=== PATIENT | female | born 1985 | race Caucasian/White ===

== ENCOUNTER 2017-01-23 03:36 | Inpatient (IN) | payer MEDICAID, OTHER ==
[~2017-01-23] VITALS: Ht 157.5 cm; Wt 88.5 kg
[2017-01-23 03:46] VITALS: Ht 157.5 cm; Wt 88.5 kg
[2017-01-23] MEDS ORDERED: PREN1TAB79 PO (03:47)
[2017-01-23 04:22] LABS: ADD SCAN DIFF NO
[2017-01-23 04:30] LABS: ADD UMIC NO; UR BILIRUBIN (Dip) NEGATIVE (NEGATIVE); UR BLOOD (Dip) NEGATIVE (NEGATIVE); UR CLARITY CLEAR (CLEAR); UR COLOR LT. YELLOW (YELLOW); UR GLUCOSE (Dip) NEGATIVE (NEGATIVE); UR KETONES (Dip) NEGATIVE (NEGATIVE); UR LEUKOCYTE ESTERASE (Dip) NEGATIVE (NEGATIVE); UR NITRITE (Dip) NEGATIVE (NEGATIVE); UR TOTAL PROTEIN (Dip) NEGATIVE (NEGATIVE); UR UROBILINOGEN (Dip) 0.2 E.U./dL (0.1-1.0)
[2017-01-23 04:36] LABS: BASOPHIL # 0.1 10^3/ul (0.0-0.1); BASOPHILS % 0.3 % (0.0-2.0); EOSINOPHILS # 0.2 10^3/ul (0.0-0.5); EOSINOPHILS % 1.2 % (0.0-7.0); HEMATOCRIT 38.3 % (37.0-47.0); HEMOGLOBIN 13.3 g/dl (12.0-16.0); LYMPHOCYTES # 2.1 10^3/ul (0.8-2.9); LYMPHOCYTES % 13.8 % (15.0-51.0); MEAN CORPUSCULAR HEMOGLOBIN 30.4 pg (29.0-33.0); MEAN CORPUSCULAR HGB CONC 34.7 g/dl (32.0-37.0); MEAN CORPUSCULAR VOLUME 87.4 fl (82.0-101.0); MEAN PLATELET VOLUME 11.6 fl (7.4-10.4); MONOCYTES % 6.7 % (0.0-11.0); NEUTROPHIL # 11.9 10^3/ul (1.6-7.5); NEUTROPHILS % 77.6 % (39.0-77.0); PLATELET COUNT 188 10^3/UL (140-415); RED BLOOD COUNT 4.38 10^6/ul (4.20-5.40); RED CELL DISTRIBUTION WIDTH 14.3 % (11.5-14.5); WHITE BLOOD COUNT 15.4 10^3/ul (4.8-10.8)
[2017-01-23 04:47] LABS: ALBUMIN 3.6 g/dl (3.3-4.9); ALBUMIN/GLOBULIN RATIO 1.12; BILIRUBIN,INDIRECT 0.3 mg/dl (0-1.1); BILIRUBIN,TOTAL 0.3 mg/dl (0.2-1.3); CALCIUM 9.2 mg/dl (8.4-10.2); CREATININE 0.5 mg/dl (0.44-1.00); POTASSIUM 3.8 mmol/L (3.5-5.1); TOTAL PROTEIN 6.8 g/dl (6.1-8.1)
--- NOTE | 2017-01-23 05:25 | RADRPT ---
PROCEDURE: OB ultrasound for biophysical profile CLINICAL INDICATION: labor TECHNIQUE: Multiple sonographic images of the pelvis were obtained. Transabdominal views of the g ravid uterus are available for review. The images were reviewed on a PACS workstation. COMPARISON: None FINDINGS: breathing movement = 2/2 tone = 2/2 motion = 2/2 BERTO = 2/2 BERTO = 11.3 cm Single live intrauterine with cardiac activity of 134 bpm. position is cephal ic. The placenta is fundal. The cervix is closed with a length of 4.3 cm. IMPRESSION: 1. Single live intrauterine gestation. 2. Biophysical profile = 8/8. 3. BERTO = 11.3 cm. 4. The cervix is closed with a length of 4.3 cm. RPTAT: HH .Katharine Darling MD, Date Time Electronically viewed and signed by .Katharine Darling MD, on 01/23/2017 05:24 .G/
--- NOTE | 2017-01-23 05:27 | RADRPT ---
PROCEDURE: US OB. CLINICAL INDICATION: Size and dates TECHNIQUE: Multiple sonographic images of the pelvis were obtained. Transabdominal imaging only w as performed. The images were reviewed on a PACS workstation. COMPARISON: No prior studies are available for comparison. FINDINGS: There is a single live intrauterine gestation. Cardiac activity is present with 137 beats per minut e. position is cephalic. Measurements were made in order to determine age. The results are as follows: BPD = 8.08 cm HC = 28.53 cm AC = 25.79 cm FL = 5.67 cm. Estimated gestational age of approximately 30 weeks 6 days. The estimated date of delivery is 03/28/2017. The EFW = 1532 g, 3.7 %ile. The placenta is fundal. There is no evidence for an abruption or placenta previa. IMPRESSION: 1. Single live intrauterine gestation of approximately 30 weeks 6 days, by ultrasound criteria. 2. The estimated date of delivery is 03/28/2017. 3. The estimated weight is 1532 g, 3.7 %ile. RPTAT: HH .Katharine Darling MD, Date Time Electronically viewed and signed by .Katharine Darling MD, on 01/23/2017 05:26 .G/
--- NOTE | 2017-01-23 05:29 | RADRPT ---
PROCEDURE: US Abdomen (right upper quadrant). CLINICAL INDICATION: Abdominal pain. TECHNIQUE: Multiple real-time longitudinal and transverse images of the right upper quadrant of th e abdomen were acquired utilizing a curved array transducer. Images were reviewed on a high-resoluti on PACS workstation. COMPARISON: None FINDINGS: The liver is normal in size and demonstrates normal echogenicity. No focal intrahepatic mass is id entified. The gallbladder contains sludge. There is no pericholecystic fluid or gallbladder wall t hickening. No intra or extrahepatic biliary dilatation is seen. The common bile duct measures 4.5 m m in maximal dimension. The portal and hepatic veins are patent demonstrating normal directional korey w. The visualized portions of the pancreas are unremarkable with obscuration of the tail of the panc reas. No free fluid is identified. The right kidney measures 9.9 cm in length. There is normal echogenicity within the right kidney. There is no perinephric fluid collection. No hydronephrosis, mass, or calculus is seen. IMPRESSION: Small amount of sludge within the gallbladder. Otherwise, unremarkable right upper quadrant ultraso und. RPTAT: HH .Katharine Darling MD, Date Time Electronically viewed and signed by .Katharine Darling MD, on 01/23/2017 05:28 .G/
[2017-01-23] MEDS ORDERED: ACETAMINOPHEN 325 MG TAB PO ONE (06:00)
--- NOTE | 2017-01-23 06:56 | HP ---
Date/Time of Note Date/Time of Note DATE: 01/23/17 TIME: 06:54 OB - History Hx of Present : 1 Para: 0 Care: Good Care Obstetrical Complications: None Medical Complications: None Past Family/Social History * Past Medical, Surgical, Family and Obstetric Histories reviewed from chart. OB Admission Exam Physical Exam Abdomen: WNL Extremities: Normal Cervical Dilatation: None Effacement: 0% Heart Rate: 140's Accelerations: Accelerations Present Decelerations: No Decelerations Varibility: Moderate Contractions on Admission: None Last 72 hours Lab Results CBC & BMP 01/23/17 04:20 Liver Function Test 01/23/17 04:20 Alanine Aminotransferase (ALT/SGPT) 50 Albumin 3.6 Alkaline Phosphatase 114 Aspartate Amino Transf (AST/SGOT) 86 H Direct Bilirubin 0.00 Total Protein 6.8 OB Assessment/Plan Reason for admission: observation Plan: Expectant Management Other plan: +CVA tenderness WBC 15 Suspected Pyelonephritis 1.Ancef 2.IV hydration 3.Prenatalogy consult DAVID GODFREY M.D. Jan 23, 2017 06:56
[2017-01-23] MEDS: LACTATED RINGER'S 1,000 ML IV SCH ×3 (10:07→22:46)
[2017-01-23] MEDS: MULTIVIT/MIN/FOLATE/IRON/PREN TAB PO SCH (10:33)
[2017-01-23] MEDS: CEFAZOLIN 2 GM/50 ML (PMX) 50 ML IV SCH ×3 (12:10→21:52)
[2017-01-23] MEDS: ACETAMINOPHEN 325 MG TAB PO PRN ×2 (12:25→16:38)
--- NOTE | 2017-01-23 13:33 | RADRPT ---
PROCEDURE: US Renal CLINICAL INDICATION: Back pain rule out kidney stone TECHNIQUE: Multiple sonographic images of the kidneys and bladder were obtained. Evaluation of th e kidneys and bladder was performed as well with fields scale and color and Doppler evaluation using a curved array transducer. The images were reviewed on a high-resolution PACS workstation. COMPARISON: Comparison previous right upper quadrant abdominal sonogram done earlier on the same d ate FINDINGS: There is a linear focus of increased echotexture measuring 0.8 cm in length with posterior acoustic shadowing suspicious for calcification which could be vascular or could represent a nonobstructing n ephrolith. No mass or hydronephrosis is evident. There is mild left pelvocaliectasis with no intra renal calcification or mass identified. The bladder appears unremarkable. There is a single fetus in a cephalic presentation noted. IMPRESSION: 1. And 8 mm linear focus of increased echotexture with posterior acoustic shadowing is seen within the mid pole of the right kidney which was not appreciable on the previous study. This could repres ent a nonobstructing nephrolith or possibly a vascular calcification. 2. Mild left pelvocaliectasis with no stone or mass seen within the left kidney. 3. The patient is with the fetus cephalic in presentation. 4. The bladder appears unremarkable. Physician Rosibel Date Time Electronically viewed and signed by Physician Rosibel on 01/23/2017 13:33 /
[2017-01-24] MEDS: ACETAMINOPHEN 325 MG TAB PO PRN ×2 (00:12→07:40)
[2017-01-24] MEDS: LACTATED RINGER'S 1,000 ML IV SCH ×3 (02:07→19:12)
[2017-01-24] MEDS: CEFAZOLIN 2 GM/50 ML (PMX) 50 ML IV SCH ×2 (05:52→14:34)
[2017-01-24] MEDS: MULTIVIT/MIN/FOLATE/IRON/PREN TAB PO SCH (08:56)
--- NOTE | 2017-01-24 16:18 | CONS ---
Date/Time of Note Date/Time of Note DATE: 01/24/17 TIME: 16:18 Assessment/Plan Assessment/Plan Additional Assessment/Plan 31 yo F 32 weeks into her first presents with 3 days of abd pain now improving. Etiology unclear. UA not consistent with infection. Gallbladder US with sludge but no current evidence of cholecystitis or duct compromise. Consider possible recent passage of GB stone? Imaging also revealed a small nonobstructing kidney stone, consider this as cause of patient's discomfort? PLAN stop abx as no evidence of bacterial infection strain urine to look for kidney stone repeat CBC with AM labs POC dw pt in detail hospitalist service will cont to follow Consultation Date/Type/Reason Admit Date/Time Jan 23, 2017 at 07:02 Type of Consultation: hospitalist Reason for Consultation abd pain Hx of Present Illness 31 yo F at 32 weeks of presented 6.12 with c/o several days of R sided abd pain. Pt reports pain began at 2am 6.10. Pain mostly in R lower quadrant also radiates to low back at times. No fevers or chills. No nausea or vomiting. Had some constipation but this has since resolved. Also states that during episodes of particularly intense pain that her hands swell as well. No new food exposures recently. No dysuria or hematuria. 10p ROS neg except as per HPI Past Medical History PMHx: none aside from Meds: PNV Soc Hx: lives in the community Exam/Review of Systems Vital Signs Vitals Intake and Output 01/23/17 01/23/17 01/24/17 15:00 23:00 07:00 Intake Total 675 ml 2100 ml 1040 ml Output Total 1500 ml 1600 ml Balance 675 ml 600 ml -560 ml Exam nad, pleasant, sitting up in bed MMM EOMI rrr no mrg lungs clear abd gravid, minimal TTP over RLQ, no rebound or guarding. no CVA tenderness bl no le edema no rashes labs reviewed, WBCs 15s. Abd US with GB sludge Results Result Diagram: 01/23/17 0420 01/23/17 0420 Medications Medications Current Medications Lactated Ringer's 1,000 ml @ 125 mls/hr Q8H IV Last administered on 01/24/17t 10:17; Admin Dose 125 MLS/HR; Start 01/23/17 at 06:46 Cefazolin Sodium/ Dextrose (Ancef 2 Gm/50 ml (Pmx)) 50 ml @ 100 mls/hr Q8 IV Last administered on 01/24/17 14:34; Admin Dose 100 MLS/HR; Start 01/23/17 at 07:00 Prenat Multivit/ [place]/Iron/Folic Ac ( S) 1 tab DAILY PO Last administered on 01/24/17 08:56; Admin Dose 1 TAB; Start 01/23/17 at 09:00 Acetaminophen (Tylenol Tab) 650 mg Q4H PRN PO PAIN AND OR ELEVATED TEMP Last administered on 01/24/17 07:40; Admin Dose 650 MG; Start 01/23/17 at 07:00 Procedures Procedures UA benign GERRY with small nonobstructive stone KAEL SEWELL MD Jan 24, 2017 16:18
--- NOTE | 2017-01-24 16:46 | CONS ---
Date/Time of Note Date/Time of Note DATE: 01/24/17 TIME: 16:21 Consultation Date/Type/Reason Admit Date/Time January 24, 2070 Hospital OB consult Reason for Consultation This patient is a 31 years old 1 para 0 estimated date of confinement of 04/03/1975 which make her about 38 weeks. She came to the hospital yesterday complaining of right side pain for the past 3 days No nausea vomiting diarrhea no vaginal bleeding no dysuria On general examination she is well-developed well-nourished lady at midterm in no acute distress except for the complain of the right side and back pain Her abdomen is soft fundus is soft heart tone is normal with good variability no deceleration Current Medications Medications (Trade) Dose Ordered Sig/Ginger Route PRN Reason Start Time Stop Time Status Last Admin Dose Admin Acetaminophen 650 mg 650 mg ONCE ONCE PO 01/23/17 06:00 01/23/17 06:01 DC 01/23/17 05:45 650 MG Lactated Ringer's 1,000 ml @ 125 mls/hr Q8H IV 01/23/17 06:46 01/24/17 10:17 125 MLS/HR Cefazolin Sodium/ Dextrose (Ancef 2 Gm/50 ml (Pmx)) 50 ml @ 100 mls/hr Q8 IV 01/23/17 07:00 01/24/17 16:17 DC 01/24/17 14:34 100 MLS/HR Prenat Multivit/ Oliver/Iron/Folic Ac ( S) 1 tab DAILY PO 01/23/17 09:00 01/24/17 08:56 1 TAB Acetaminophen (Tylenol Tab) 650 mg Q4H PRN PO PAIN AND OR ELEVATED TEMP 01/23/17 07:00 01/24/17 07:40 650 MG Constitutional: No chills, No diaphoresis, No disoriented, No febrile, No improved, No no complaints, No other, No poor po, No requiring IVF, No requiring O2 Eyes: other (No Ángela), No discharge, No no complaints, No pain, No redness, No visual change ENT: No bleeding, No congestion, No discharge, No dysphagia, No no complaints, No other, No pain, No sore throat Respiratory: other (Chest is clear no rales), No cough, No no complaints, No pain, No pleuritic pain, No shortness of breath, No sputum, No wheezing Cardiovascular: No chest pain, No edema, No lightheadedness, No no complaints, No orthopenea, No other, No palpitations, No paroxysmal nocturnal dyspnea Gastrointestinal: other (As I mentioned no diarrhea no vomiting), No blood, No constipation, No decreased appetite, No diarrhea, No flatus, No nausea, No no complaints, No pain, No passing stool, No vomiting Genitourinary: other (No vaginal bleeding no discharge), No bleeding, No discharge, No dysuria, No flank pain, No hematuria, No no complaints Musculoskeletal: other, swelling Skin: rash (No rash no petechiae), No bruising, No erythema, No laceration, No no complaints, No other, No pruritis, No skin lesions Neurologic: other (Knee-jerk reflexes normal), No confusion, No dizziness, No focal-weakness, No headache, No no complaints , No seizure, No syncope Endocrine: No dry skin, No no complaints, No other, No polydypsia, No polyuria , No temp intolerance Lymphatic: No adenopathy, No lymphadema, No no complaints, No other, No tender nodes Additional Comments On the studies that was done here ,her ultrasound report was a single live intrauterine gestation with heart rate of 137 her biophysical profile was reported 03/21 estimated weight was 1532 g and the gestational age was appropriate for the date which is 30 weeks and 6 days BERTO 11.3 , biophysical profile 03/21 the cervix was 4.3 cm long and closed, On renal study by ultrasound report is mild left pelvocaliectasis with no stone or mass within the left kidney bladder was normal On abdominal ultrasound the liver was normal size with normal echogenicity no focal intrahepatic mass ,small amount of sludge within the gallbladder otherwise unremarkable right upper quadrant ultrasound Ultrasound study regarding her was completely within normal range Impression: Normal intrauterine of 30 weeks Rule out cholecystitis or any other related condition We will request internal medicine consult Exam/Review of Systems Vital Signs Vitals Intake and Output 01/23/17 01/23/17 01/24/17 15:00 23:00 07:00 Intake Total 675 ml 2100 ml 1040 ml Output Total 1500 ml 1600 ml Balance 675 ml 600 ml -560 ml Results Result Diagram: 01/23/17 0420 01/23/17 0420 Medications Medications Current Medications Lactated Ringer's (Lr) 1,000 ml @ 125 mls/hr Q8H IV Last administered on 10:17; Admin Dose 125 MLS/HR; Start 01/23/17 at 06:46 Prenat Multivit/ Oliver/Iron/Folic Ac ( S) 1 tab DAILY PO Last administered on 01/24/17 08:56; Admin Dose 1 TAB; Start 01/23/17 at 09:00 Acetaminophen (Tylenol Tab) 650 mg Q4H PRN PO PAIN AND OR ELEVATED TEMP Last administered on 01/24/17 07:40; Admin Dose 650 MG; Start 01/23/17 at 07:00 SHEA CEVALLOS MD Jan 24, 2017 16:38
--- NOTE | 2017-01-24 19:15 | QN ---
Documentation Comment patient seen and evaluated complains of occasion upper/lower abdominal pain no n/v, sob, vs stable ab gravid mild upper/lower abdominal tenderness (pt report improvement since admission) extr no edema no calf tenderness a/ iup at 30 wks ga, sludge in gullbladder, elevated wbc p/ f/u cbc in am social work consult TALAT BRISCOE MD Jan 24, 2017 19:15
[2017-01-24] MEDS: AL HYDROX/MG HYDROX/SIMETH 30 ML CUP PO PRN (20:31)
[2017-01-24] MEDS: OXYCODONE/ACETAMINOPHEN (10/325) TAB PO PRN (21:21)
[2017-01-25] MEDS: OXYCODONE/ACETAMINOPHEN (10/325) TAB PO PRN ×4 (02:15→16:04)
[2017-01-25] MEDS: LACTATED RINGER'S 1,000 ML IV SCH (03:39)
[2017-01-25] MEDS: MULTIVIT/MIN/FOLATE/IRON/PREN TAB PO SCH (09:29)
[2017-01-25] MEDS: AL HYDROX/MG HYDROX/SIMETH 30 ML CUP PO PRN ×2 (12:25→16:05)
[2017-01-25 13:41] LABS: ADD SCAN DIFF NO
[2017-01-25 13:43] LABS: BASOPHILS % 0.2 % (0.0-2.0); EOSINOPHILS # 0.2 10^3/ul (0.0-0.5); EOSINOPHILS % 1.8 % (0.0-7.0); HEMATOCRIT 36.4 % (37.0-47.0); HEMOGLOBIN 12.4 g/dl (12.0-16.0); LYMPHOCYTES # 2.2 10^3/ul (0.8-2.9); LYMPHOCYTES % 18.3 % (15.0-51.0); MEAN CORPUSCULAR HEMOGLOBIN 30.5 pg (29.0-33.0); MEAN CORPUSCULAR HGB CONC 34.1 g/dl (32.0-37.0); MEAN CORPUSCULAR VOLUME 89.7 fl (82.0-101.0); MEAN PLATELET VOLUME 11.9 fl (7.4-10.4); MONOCYTE # 0.8 10^3/ul (0.3-0.9); MONOCYTES % 6.5 % (0.0-11.0); NEUTROPHIL # 8.9 10^3/ul (1.6-7.5); NEUTROPHILS % 72.8 % (39.0-77.0); PLATELET COUNT 152 10^3/UL (140-415); RED BLOOD COUNT 4.06 10^6/ul (4.20-5.40); RED CELL DISTRIBUTION WIDTH 14.6 % (11.5-14.5); WHITE BLOOD COUNT 12.2 10^3/ul (4.8-10.8)
--- NOTE | 2017-01-25 16:57 | CONS ---
Date/Time of Note Date/Time of Note DATE: 01/25/17 TIME: 16:56 Assessment/Plan Assessment/Plan Additional Assessment/Plan 31 yo F at 32 weeks of presented 6.12 with c/o several days of R sided abd pain. Pt reports pain began at 2am 6.10. Pain mostly in R lower quadrant also radiates to low back at times. No fevers or chills. No nausea or vomiting. Had some constipation but this has since resolved. Also states that during episodes of particularly intense pain that her hands swell as well. No new food exposures recently. No dysuria or hematuria. Pain now improving but etiology still unclear. As pt tolerating PO I have stopped IVFs As no infectious focus found, I have stopped antibiotics Consider monitoring pt for additional 24 hours and if stable consider discharge. Will recheck CBC and CMP in AM Consultation Date/Type/Reason Admit Date/Time Jan 23, 2017 at 07:02 Initial Consult Date Type of Consultation: hospitalist 24 HR Interval Summary Free Text/Dictation Pt reports abd improving but still present at night Exam/Review of Systems Vital Signs Vitals Intake and Output 01/24/17 01/24/17 01/25/17 15:00 23:00 07:00 Intake Total 1230 ml 800 ml 1815 ml Output Total 600 ml 250 ml 1650 ml Balance 630 ml 550 ml 165 ml Exam nad, sitting up in bed no mrg lungs clear gravid, mild ttp RLQ no le edema WBCs improving Results Result Diagram: 01/25/17 1311 01/23/17 0420 Results 24 hrs Laboratory Tests Test 01/25/17 13:11 White Blood Count 12.2 #H Red Blood Count 4.06 L Hemoglobin 12.4 Hematocrit 36.4 L Mean Corpuscular Volume 89.7 Mean Corpuscular Hemoglobin 30.5 Mean Corpuscular Hemoglobin Concent 34.1 Red Cell Distribution Width 14.6 H Platelet Count 152 Mean Platelet Volume 11.9 H Neutrophils % 72.8 Lymphocytes % 18.3 Monocytes % 6.5 Eosinophils % 1.8 Basophils % 0.2 Nucleated Red Blood Cells % 0.0 Neutrophils # 8.9 H Lymphocytes # 2.2 Monocytes # 0.8 Eosinophils # 0.2 Basophils # 0.0 Nucleated Red Blood Cells # 0.0 Medications Medications Current Medications Prenat Multivit/ Decontamination Worker/Iron/Folic Ac ( S) 1 tab DAILY PO Last administered on 01/25/17 09:29; Admin Dose 1 TAB; Start 01/23/17 at 09:00 Acetaminophen (Tylenol Tab) 650 mg Q4H PRN PO PAIN AND OR ELEVATED TEMP Last administered on 01/24/17 07:40; Admin Dose 650 MG; Start 01/23/17 at 07:00 Oxycodone/ Acetaminophen (Endocet (10/ 325)) 1 tab Q4H PRN PO PAIN Last administered on 01/25/17 16:04; Admin Dose 1 TAB; Start 01/24/17 at 20:00 Al Hydrox/Mg Hydrox/Simethicone (Mag-Al Plus) 30 ml Q4H PRN PO GASTROINTESTINAL UPSET Last administered on 01/25/17 16:05; Admin Dose 30 ML; Start 01/24/17 at 20:00 KEAL SEWELL MD Jan 25, 2017 16:57
--- NOTE | 2017-01-25 17:23 | RADRPT ---
PROCEDURE: US OB biophysical profile. CLINICAL INDICATION: evaluation TECHNIQUE: Multiple sonographic images of the pelvis were obtained. The images were reviewed on a PACS workstation. COMPARISON: Obstetrical ultrasound from 01/23/2017 FINDINGS: There is a single viable intrauterine gestation. Cardiac activity is present with 134 beats per min facundo. There is a vertex presentation. The placenta is fundal. There is no evidence of placental abruption. There is a normal amount of amniotic fluid with an BERTO = 9.4 cm. Biophysical profile: movement 2/2 tone 2/2. breathing 2/2 BERTO 2/2 Total 03/21 RPTAT: AA . IMPRESSION: Normal biophysical profile. Physician Darshana Date Time Electronically viewed and signed by Physician Darshana on 01/25/2017 17:23 /
--- NOTE | 2017-01-25 17:24 | RADRPT ---
PROCEDURE: Obstetrical ultrasound CLINICAL INDICATION: possible iugr TECHNIQUE: Multiple sonographic images of the pelvis were obtained. The images were reviewed on a PACS workstation. COMPARISON: None FINDINGS: The cervix is not well visualized. There is a single viable intrauterine gestation. Cardiac activity is present with 131 beats per minute. There is a vertex presentation. The placenta is fundal. There is no evidence for an abruption or placenta previa. There is a normal amount of amniotic fluid with an BERTO = 9.4 cm. Measurements were made in order to determine age. The results are as follows (cm): BPD =7.88 HC =28.35 AC =26.03 FL =5.88 Estimated gestational age by ultrasound of approximately 30 weeks, 6 days. The estimated date of delivery by ultrasound is 03/30/2017. Estimated gestational age by LMP of approximately 30 weeks, 2 days. The estimated date of delivery by LMP is 04/03/2017. EFW = 1591 grams (45th percentile) IMPRESSION: Single viable intrauterine gestation of approximately 30 weeks, 6 days . The estimated date of delivery is 03/30/2017 . Dating by ultrasound is within 4 days of dating by LMP. Cephalic presentation. Normal BERTO. Estimated weight is in the 45th percentile. RPTAT: EE Physician Darshana Date Time Electronically viewed and signed by Physician Darshana on 01/25/2017 17:24 /
[2017-01-25 18:39] LABS: ADD UMIC YES; UR BILIRUBIN (Dip) NEGATIVE (NEGATIVE); UR BLOOD (Dip) TRACE (NEGATIVE); UR CLARITY CLEAR (CLEAR); UR COLOR LT. YELLOW (YELLOW); UR GLUCOSE (Dip) NEGATIVE (NEGATIVE); UR KETONES (Dip) NEGATIVE (NEGATIVE); UR LEUKOCYTE ESTERASE (Dip) TRACE (NEGATIVE); UR NITRITE (Dip) NEGATIVE (NEGATIVE); UR TOTAL PROTEIN (Dip) NEGATIVE (NEGATIVE); UR UROBILINOGEN (Dip) 0.2 E.U./dL (0.1-1.0)
[2017-01-25 18:52] LABS: UR BACTERIA FEW; UR SQUAMOUS EPITHELIAL CELL FEW; URINE RBCS 0-2 /HPF (0)
--- NOTE | 2017-01-25 20:50 | CONS ---
DATE OF ADMISSION: 01/23/2017 DATE OF CONSULTATION: 01/25/2017 REASON FOR CONSULTATION: Abdominal pain. HISTORY OF PRESENT ILLNESS: The patient is a 31-year-old female, 1, para 0, who is 30 weeks who presented initially complaining of abdominal pain of approximately 5 days in duration. She describes the pain as being located in the epigastric area, radiating towards the right upper and right lower quadrants and suprapubic area. She also reports some vomiting; however, she states that she has been vomiting pretty much throughout her . She denies any diarrhea or constip ation or fever/chills. On arrival, she was found to have a white blood cell count of 15.4. She was therefore admitted and started on IV antibiotics. An abdominal ultrasound was done, which showed a small amount of sludge within the gallbladder and a possible right kidney stone, otherwise negative . The patient has continued to complain of abdominal pain, which is controlled with oral Percocet. She has been tolerating a diet. She has been afebrile since she has been here. Otherwise, accordi ng to the patient, her has been progressing normally. PAST MEDICAL HISTORY: Otherwise noncontributory. PAST SURGICAL HISTORY: Otherwise negative. MEDICATIONS: Please refer to medication reconciliation. ALLERGIES: NO KNOWN DRUG ALLERGIES. SOCIAL HISTORY: The patient does not smoke, drink, or do any illicit drugs. REVIEW OF SYSTEMS: A 14-point review of systems was conducted and was negative except for that whic h was mentioned in the HPI. PHYSICAL EXAMINATION: VITAL SIGNS: The patient is afebrile and hemodynamically stable. GENERAL APPEARANCE: She is a well-developed, well-nourished, obese female who is awake, al ert, and oriented x3 and in no acute distress at this time. HEENT: Pupils are equal and reactive to light and accommodation. There is no scleral icterus. Ski n is not jaundiced. NECK: Supple without JVD. CARDIOVASCULAR: S1, S2. Regular rate and rhythm. No murmurs appreciated. RESPIRATORY: Clear to auscultation bilaterally. ABDOMEN: Soft, gravid. Bowel sounds are present. There is mild epigastric tenderness to palpation with right lower quadrant and right upper quadrant tenderness to palpation. There is no involuntar y guarding or evidence of diffuse peritonitis. EXTREMITIES: Do not exhibit any signs of cyanosis, edema, or clubbing. IMAGING STUDIES: Abdominal ultrasound is as mentioned in HPI with a small amount of sludge in the g allbladder, otherwise unremarkable. Renal ultrasound shows a possible 8 mm stone in the mid pole of the right kidney. RECOMMENDATIONS: This is a 31-year-old female who is 30 weeks with abdominal pain. Given the duration of the patient's symptoms and clinical findings, my suspicion for acute appendici tis is low at this time, however, it cannot be completely ruled out. The patient states she has bee n better since she has been admitted to the hospital. She is tolerating a diet. She has been afebr ile and her leukocytosis has been improving. I would continue with serial abdominal exams and close observation. Her urinalysis was negative though her urine culture grew mixed gram-positive fredy. This is likely contaminate and consideration should be given to repeat of clean catch urine. Other causes of the patient's pain may include gastritis, biliary dyskinesia, gastrointestinal viral synd guanaco, ligamentous or musculoskeletal pain, etc. I do not believe surgical intervention is required at this time. I will continue with careful observation of this patient. If the patient's symptoms did not improve, then MRI versus a CT scan should be considered for further evaluation. Both of the se have been proven to be safe in during all trimesters through multiple studies. The above was discussed with the patient and the nurse at the bedside. I ensured that all the patie nt's questions were answered. Further recommendations will be made based on the patient's clinical course. Dictated By: TALAT JOSE/VICK Conf#: [id number] DID#: [id number] CC: TALAT BRISCOE MD;*EndCC*
[2017-01-25] MEDS ORDERED: HYDROCORTISONE 1% 28 GM CR TOP PRN ×2 (21:00→21:30)
[2017-01-25] MEDS: ACETAMINOPHEN 325 MG TAB PO PRN (21:24)
--- NOTE | 2017-01-26 00:30 | PN ---
Date/Time of Note Date/Time of Note DATE: 01/26/17 TIME: 00:21 OB Subjective Subjective Subjective Patient denies any fever or chills. Denies any leaking of fluid, vaginal bleeding or decreased movement. She denies any urinary symptoms. Still complaining of pain in the right upper and right mid abdomen with radiation to the back. Patient receiving Percocet for pain that improves her pain. She is concerned about possibility of appendicitis. Had vomiting last night. Today he had some nausea but could be able to tolerate diet. Has been seen by GI This morning. OB Objective Objective Objective General appearance: Alert and oriented 4. Patient appears to be in mild to moderate distress Abdomen: Soft, gravid, fundal height consistent with gestational age. Tenderness in the right upper quadrant and in the right mid quadrant of the abdomen noted. there is moderate rebound tenderness, no guarding, no rigidity no evidence of acute abdomen. No uterine tenderness extremities: No calf tenderness, no click, no cords palpable NST: Category 1 Occasional rare contractions or irritability noted patient denies feeling Hematology - 72 Hrs Test 01/23/17 04:20 01/25/17 13:11 White Blood Count 15.410^3/ul (4.8-10.8) H 12.210^3/ul (4.8-10.8) #H Red Blood Count 4.3810^6/ul (4.20-5.40) 4.0610^6/ul (4.20-5.40) L Hemoglobin 13.3g/dl (12.0-16.0) 12.4g/dl (12.0-16.0) Hematocrit 38.3% (37.0-47.0) 36.4% (37.0-47.0) L Mean Corpuscular Volume 87.4fl (82.0-101.0) 89.7fl (82.0-101.0) Mean Corpuscular Hemoglobin 30.4pg (29.0-33.0) 30.5pg (29.0-33.0) Mean Corpuscular Hemoglobin Concent 34.7g/dl (32.0-37.0) 34.1g/dl (32.0-37.0) Red Cell Distribution Width 14.3% (11.5-14.5) 14.6% (11.5-14.5) H Platelet Count 05831^3/UL (140-415) 54742^3/UL (140-415) Mean Platelet Volume 11.6fl (7.4-10.4) H 11.9fl (7.4-10.4) H Neutrophils % 77.6% (39.0-77.0) H 72.8% (39.0-77.0) Lymphocytes % 13.8% (15.0-51.0) L 18.3% (15.0-51.0) Monocytes % 6.7% (0.0-11.0) 6.5% (0.0-11.0) Eosinophils % 1.2% (0.0-7.0) 1.8% (0.0-7.0) Basophils % 0.3% (0.0-2.0) 0.2% (0.0-2.0) Nucleated Red Blood Cells % 0.0/100WBC (0.0-0.0) 0.0/100WBC (0.0-0.0) Neutrophils # 11.910^3/ul (1.6-7.5) H 8.910^3/ul (1.6-7.5) H Lymphocytes # 2.110^3/ul (0.8-2.9) 2.210^3/ul (0.8-2.9) Monocytes # 1.010^3/ul (0.3-0.9) H 0.810^3/ul (0.3-0.9) Eosinophils # 0.210^3/ul (0.0-0.5) 0.210^3/ul (0.0-0.5) Basophils # 0.110^3/ul (0.0-0.1) 0.010^3/ul (0.0-0.1) Nucleated Red Blood Cells # 0.010^3/ul (0.0-0.0) 0.010^3/ul (0.0-0.0) Chemistry Test 01/23/17 04:20 Sodium Level 137mmol/L (135-144) Potassium Level 3.8mmol/L (3.5-5.1) Chloride Level 106mmol/L (97-110) Carbon Dioxide Level 22mmol/L (21-31) Anion Gap 13 (8-16) Blood Urea Nitrogen 7mg/dl (7-20) Creatinine 0.50mg/dl (0.44-1.00) Glucose Level 89mg/dl (70-220) Calcium Level 9.2mg/dl (8.4-10.2) Total Bilirubin 0.3mg/dl (0.2-1.3) Direct Bilirubin 0.00mg/dl (0.00-0.20) Indirect Bilirubin 0.3mg/dl (0-1.1) Aspartate Amino Transf (AST/SGOT) 86IU/L (15-46) H Alanine Aminotransferase (ALT/SGPT) 50IU/L (13-69) Alkaline Phosphatase 114IU/L (42-121) Total Protein 6.8g/dl (6.1-8.1) Albumin 3.6g/dl (3.3-4.9) Globulin 3.20g/dl (1.3-3.2) Albumin/Globulin Ratio 1.12 OB Assessment/Plan Other Assessment: IUP at 30 weeks and 2 days Right and mid abdominal pain, leukocytosis, biliary sludge noted in the ultrasound No pericholecystic fluid, no thickening of the gallbladder wall. No evidence of cholecystitis Slight elevated LFTs, unclear etiology No evidence of pyelonephritis Due to location of the pain as well as displacement of the appendix during recommended and discussed with patient to have a surgery consultation to rule out for appendicitis I have consulted with general surgery who kindly agreed to see the patient today Patient also with elevated hCG and AFP during at risk of IUGR and preeclampsia. Had ultrasound with [facility] perinatology which recommended to repeat her ultrasound every 4 weeks. Growth ultrasound at this facility was done, concern for IUGR based on EFW percentile I have discussed this with radiology who confirmed the estimated weight by ultrasound at this facility 3.7 percentile this possibly not accurate since each individual measurements including BPD, HC and AC are within the range of gestational age Clinical LEN was inaccurately placed in the system. I discussed this with Dr. Quesada team who advised me to inform radiology about accurate clinical dating. Recommended by radiology to repeat the test. Repeat ultrasound showed appropriate growth. Per Dr. Quesada's recommendation if the growth is normal only needs to have a follow-up after discharge from the hospital with high-risk . No requirement for Doppler at this time unless any concern for IUGR Patient needs to have a follow-up as outpatient after discharge from the hospital for growth ultrasound with [facility] perinatology Awaiting general surgery consultation for the recommendation We will continue to monitor the patient in-house Expectant management LAUREEN SINCLAIR MD Jan 26, 2017 00:30
[2017-01-26] MEDS: OXYCODONE/ACETAMINOPHEN (5/325) TAB PO PRN ×4 (00:37→20:22)
[2017-01-26 05:54] LABS: ADD SCAN DIFF NO
[2017-01-26 06:01] LABS: BASOPHILS % 0.2 % (0.0-2.0); EOSINOPHILS # 0.3 10^3/ul (0.0-0.5); EOSINOPHILS % 2.4 % (0.0-7.0); HEMATOCRIT 37.3 % (37.0-47.0); HEMOGLOBIN 12.5 g/dl (12.0-16.0); LYMPHOCYTES # 2.5 10^3/ul (0.8-2.9); LYMPHOCYTES % 21.7 % (15.0-51.0); MEAN CORPUSCULAR HEMOGLOBIN 29.8 pg (29.0-33.0); MEAN CORPUSCULAR HGB CONC 33.5 g/dl (32.0-37.0); MEAN PLATELET VOLUME 11.8 fl (7.4-10.4); MONOCYTE # 0.8 10^3/ul (0.3-0.9); MONOCYTES % 7.2 % (0.0-11.0); NEUTROPHIL # 7.7 10^3/ul (1.6-7.5); NEUTROPHILS % 68.1 % (39.0-77.0); PLATELET COUNT 152 10^3/UL (140-415); RED BLOOD COUNT 4.19 10^6/ul (4.20-5.40); RED CELL DISTRIBUTION WIDTH 14.6 % (11.5-14.5); WHITE BLOOD COUNT 11.3 10^3/ul (4.8-10.8)
[2017-01-26 06:52] LABS: ALBUMIN 3.6 g/dl (3.3-4.9); ALBUMIN/GLOBULIN RATIO 1.28; BILIRUBIN,INDIRECT 0.3 mg/dl (0-1.1); BILIRUBIN,TOTAL 0.3 mg/dl (0.2-1.3); CREATININE 0.56 mg/dl (0.44-1.00); POTASSIUM 3.8 mmol/L (3.5-5.1); TOTAL PROTEIN 6.4 g/dl (6.1-8.1)
[2017-01-26] MEDS: MULTIVIT/MIN/FOLATE/IRON/PREN TAB PO SCH (09:13)
[2017-01-26] MEDS: ACETAMINOPHEN 325 MG TAB PO PRN ×2 (13:38→16:35)
[2017-01-26] MEDS ORDERED: BISACODYL 10 MG SUPP PR ONE (15:00)
--- NOTE | 2017-01-26 17:10 | PN ---
Date/Time of Note Date/Time of Note DATE: 01/26/17 TIME: 17:05 Assessment/Plan Lines/Catheters IV Catheter Type (from [facility]): Peripheral IV Assessment/Plan Assessment/Plan 31-year-old female who is 30 weeks with right-sided abdominal pain. * Remains afebrile. Leukocytosis improving. * Given the duration of the patient's symptoms and clinical findings, my suspicion for acute appendicitis remains low at this time. * I do not believe surgical intervention is required at this time. * If the patient's symptoms do not improve, then MRI versus a CT scan should be considered for further evaluation. Both of these have been proven to be safe in during all trimesters through multiple studies. * Continue management per [employer]OND[employer] PU[employer] The above was discussed with the patient and the nurse at the bedside. I ensured that all the patient's questions were answered. Further recommendations will be made based on the patient's clinical course. Subjective 24 Hr Interval Summary Still with intermittent right-sided abdominal pain that is controlled with Percocet. Tolerating diet and denies nausea. Afebrile. Exam/Review of Systems Vital Signs Vitals Intake and Output 01/25/17 01/25/17 01/26/17 15:00 23:00 07:00 Intake Total 625 ml Output Total 500 ml Balance 625 ml -500 ml Exam Free Text/Dictation GENERAL APPEARANCE: She is a well-developed, well-nourished, obese female who is awake, alert, and oriented x3 and in no acute distress at this time. She is observed ambulating from the bathroom to her bed without difficulty. CARDIOVASCULAR: S1, S2. Regular rate and rhythm. No murmurs appreciated. RESPIRATORY: Clear to auscultation bilaterally. ABDOMEN: Soft, gravid. Bowel sounds are present. Right lower quadrant and right upper quadrant tenderness to palpation, which is mildly improved on examination from yesterday. There is no involuntary guarding or evidence of diffuse peritonitis. EXTREMITIES: Do not exhibit any signs of cyanosis, edema, or clubbing. Results Result Diagram: 01/26/17 0527 01/26/17 0527 TALAT WILLIS MD Jan 26, 2017 17:10
--- NOTE | 2017-01-26 19:05 | QN ---
Documentation Comment Patient at 30+weeks of gestation with right upper quadrant pain Patient stable and afebrile Leukocytosis improving WBC within normal limits Continue with present management Consider DC home tomorrow if cleared by hospitalist CHRISTY CALDWELL MD Jan 26, 2017 19:05
--- NOTE | 2017-01-26 19:30 | EN ---
Date/Time of Note Date/Time of Note DATE: 01/26/17 TIME: 19:29 Event Note Medicine Medicine Event Note Brief hospitalist consult service follow up note pt not physically seen today but notes and labs reviewed WBCs improving, abd pain improving per notes defer decision re imaging to primary team I will personally assess pt tomorrow Kael Franklin MD hospitalist KAEL FRANKLIN MD Jan 26, 2017 19:30
[2017-01-26] MEDS: NITROFURANTOIN (SR) 100 MG CAP PO SCH (20:21)
[2017-01-26] MEDS: DOCUSATE SODIUM 100 MG CAP PO SCH (20:21)
[2017-01-27 06:20] LABS: ADD SCAN DIFF NO
[2017-01-27 06:38] LABS: HEMATOCRIT 37.7 % (37.0-47.0); HEMOGLOBIN 13.2 g/dl (12.0-16.0); MEAN CORPUSCULAR HEMOGLOBIN 30.8 pg (29.0-33.0); MEAN CORPUSCULAR VOLUME 87.9 fl (82.0-101.0); MEAN PLATELET VOLUME 11.6 fl (7.4-10.4); PLATELET COUNT 130 10^3/UL (140-415); RED BLOOD COUNT 4.29 10^6/ul (4.20-5.40); RED CELL DISTRIBUTION WIDTH 14.4 % (11.5-14.5); WHITE BLOOD COUNT 15.1 10^3/ul (4.8-10.8)
[2017-01-27 07:42] LABS: LYMPHOCYTES # 1.2 10^3/ul (0.8-2.9); MONOCYTE # 0.9 10^3/ul (0.3-0.9); NEUTROPHIL # 12.4 10^3/ul (1.6-7.5)
[2017-01-27] MEDS: NITROFURANTOIN (SR) 100 MG CAP PO SCH (09:07)
[2017-01-27] MEDS: MULTIVIT/MIN/FOLATE/IRON/PREN TAB PO SCH (09:08)
[2017-01-27] MEDS: DOCUSATE SODIUM 100 MG CAP PO SCH (09:08)
[2017-01-27] MEDS: ACETAMINOPHEN 325 MG TAB PO PRN (12:37)
--- NOTE | 2017-01-27 17:21 | CONS ---
Date/Time of Note Date/Time of Note DATE: 01/27/17 TIME: 17:20 Consultation Date/Type/Reason Admit Date/Time Jan 23, 2017 at 07:02 Type of Consultation: hospitalist 24 HR Interval Summary Free Text/Dictation Pt reports abd pain improving vitals reviewed, no fevers nad no mrg lung clear abd gravid no le edema WBCs slightly higher repeat UA negative 31 yo F at 32 weeks of presented 6.12 with c/o several days of R sided abd pain. Pt reports pain began at 2am 6.10. Pain mostly in R lower quadrant also radiates to low back at times. No fevers or chills. No nausea or vomiting. Had some constipation but this has since resolved. Also states that during episodes of particularly intense pain that her hands swell as well. No new food exposures recently. No dysuria or hematuria. etiology of pain unclear. consider 2/2 her small kidney stone seen on prior imaging v previously passed gallstone based on US finding of sludge. pain now improving. gen surg following as well discharge as per laborist Exam/Review of Systems Vital Signs Vitals Intake and Output 01/26/17 01/26/17 01/27/17 15:00 23:00 07:00 Output Total 1350 ml Balance -1350 ml Results Result Diagram: 01/27/17 0600 01/26/17 0527 Results 24 hrs Laboratory Tests Test 01/27/17 06:00 White Blood Count 15.1 #H Red Blood Count 4.29 Hemoglobin 13.2 Hematocrit 37.7 Mean Corpuscular Volume 87.9 Mean Corpuscular Hemoglobin 30.8 Mean Corpuscular Hemoglobin Concent 35.0 Red Cell Distribution Width 14.4 Platelet Count 130 L Mean Platelet Volume 11.6 H Neutrophils % 82.0 H Lymphocytes % 8.0 L Reactive Lymphocytes % 4.0 Monocytes % 6.0 Neutrophils # 12.4 H Lymphocytes # 1.2 Monocytes # 0.9 Medications Medications Current Medications Prenat Multivit/ [place]/Iron/Folic Ac ( S) 1 tab DAILY PO Last administered on 01/27/17 09:08; Admin Dose 1 TAB; Start 01/23/17 at 09:00 Acetaminophen (Tylenol Tab) 650 mg Q4H PRN PO PAIN AND OR ELEVATED TEMP Last administered on 01/27/17 12:37; Admin Dose 650 MG; Start 01/23/17 at 07:00 Al Hydrox/Mg Hydrox/Simethicone (Mag-Al Plus) 30 ml Q4H PRN PO GASTROINTESTINAL UPSET Last administered on 01/25/17 16:05; Admin Dose 30 ML; Start 01/24/17 at 20:00 Oxycodone/ Acetaminophen (Percocet (5/ 325)) 1 tab Q4H PRN PO PAIN Last administered on 01/26/17 20:22; Admin Dose 1 TAB; Start 01/25/17 at 21:00 Hydrocortisone (Hydrocortisone 1% Cr) 1 applic Q6 PRN TOP ITCHING Last administered on 01/25/17 21:55; Admin Dose 1 APPLIC; Start 01/25/17 at 21:30 Docusate Sodium (Colace) 100 mg BID PO Last administered on 01/27/17 09:08; Admin Dose 100 MG; Start 01/26/17 at 21:00 Nitrofurantoin Macrocrystals (Macrobid) 100 mg BID PO Last administered on 01/27 09:07; Admin Dose 100 MG; Start 01/26/17 at 21:00 KAEL SEWELL MD Jan 27, 2017 17:21
--- NOTE | 2017-01-28 07:13 | DS ---
DATE OF ADMISSION: 01/23/2017 DATE OF DISCHARGE: 01/27/2017 DISCHARGE DIAGNOSIS: 1. Intrauterine at 30 weeks. 1. Biliary colic. 2. Probable right kidney stone. HOSPITAL COURSE: The patient is a 22-year-old female, 1, G1, P0, who presents at 30 weeks c omplaining of right-sided abdominal pain in upper and lower quadrant, for the last 5 days. The sushil ent upon admission had some elevated WBCs. The patient was admitted to rule out appendicitis and fur ther evaluation of right lower quadrant pain. The patient had imaging studies which showed some niraj iary sludge and also patient had a small 8 mm right renal stone which possibly could represent on ul trasound presented a linear focus which could represent nonobstructing stone versus just possible va scular calcification. The patient, on urinalysis, had no blood and the final urine culture is negati ve. On urine specimen again, the patient had no blood. The patient was admitted, however, to rule out appendicitis and another etiologies. The patient had a surgery and medicine consultation. On day of discharge, the patient was doing well and is discharged on 01/27/2017. H and H is stable. Urine culture is negative. Chemistry panel also within normal limits. Patient was feeling well. Minimal pain. This is a category 1 tracing. The patient will be discharged home in stable conditio n. ER precautions were given. The patient to follow with TECHNICAL PROJECT COORDINATOR doctor on Monday and patient is se nt home in stable condition. Dictated By: TOM LING MD /NTS Conf#: [id number] DID#: [id number]
== END 2017-01-27 18:05 | disposition home or self-care (01) | DRG 781 ==
LOC: OBT 03:36 → L-D 03:38 → OBT 07:00 → OBG 07:02
PROVIDERS: ADMIT Obstetrics & Gynecology; ATTEND Obstetrics & Gynecology
DX: O26.613 Liver and biliary tract disorders in pregnancy, third trimester (principal); N20.0 Calculus of kidney; Z3A.30 30 weeks gestation of pregnancy
CPT/HCPCS: 36415; 76705; 76775; 76815; 76816; 76817; 76818; 80053; 81001; 81003; 85025; 87086; G0463; J0690; J7120

== ENCOUNTER 2017-02-09 16:48 | Inpatient (IN) | payer OTHER ==
[~2017-02-09 16:48] MED LIST: PREN1TAB79 PO
[2017-02-09 17:16] VITALS: BP 128/61; PULSE 61
[2017-02-09 17:31] LABS: ADD UMIC YES; UR ASCORBIC ACID NEGATIVE (NEGATIVE); UR BACTERIA FEW /HPF (NONE SEEN); UR BILIRUBIN (Dip) NEGATIVE (NEGATIVE); UR BLOOD (Dip) 1+ mg/dL (NEGATIVE); UR CLARITY SLIGHTLY CLOUDY (CLEAR); UR COLOR YELLOW (YELLOW); UR GLUCOSE (Dip) NEGATIVE (NEGATIVE); UR KETONES (Dip) NEGATIVE (NEGATIVE); UR LEUKOCYTE ESTERASE (Dip) 3+ Leu/ul (NEGATIVE); UR MUCUS FEW /HPF (NONE SEEN); UR NITRITE (Dip) NEGATIVE (NEGATIVE); UR RBC 4 /HPF (0-5); UR SPECIFIC GRAVITY (Dip) 1.023 (1.003-1.030); UR SQUAMOUS EPITHELIAL CELL FEW /HPF (FEW); UR TOTAL PROTEIN (Dip) 1+ mg/dl (NEGATIVE); UR UROBILINOGEN (Dip) NEGATIVE (NEGATIVE)
--- NOTE | 2017-02-09 17:59 | RADRPT ---
PROCEDURE: US biophysical profile. CLINICAL INDICATION: Severe pelvic pain. TECHNIQUE: Multiple sonographic images of the uterus were obtained. The images were revi ewed on a PACS workstation. COMPARISON: 01/15/2017. FINDINGS: There is a single live intrauterine gestation. heart rate is 134 beats per minute. The position is cephalic. The placenta is fundal grade 1 with no abruption or previa. The BERTO is 13.4 cm. (Normal = 5-20 cm.) Breathing Movement: 2 Gross Body Movement: 2 Tone: 2 Qualitative Amniotic Fluid Volume: 2 TOTAL: 8 IMPRESSION: 1. The biophysical score is 8/8. RPTAT: QQ .Andres Doan MD, MD Date Time Electronically viewed and signed by .Andres Doan MD, on 02/09/2017 17:59 .R/
[2017-02-09] MEDS: LACTATED RINGER'S 1,000 ML IV SCH ×4 (18:05→23:51)
--- NOTE | 2017-02-09 19:10 | RADRPT ---
PROCEDURE: CERVICAL LENGTH ULTRASOUND CLINICAL INDICATION: labor at 34 weeks gestational age. TECHNIQUE: Trans-vaginal imaging of the cervical canal was performed utilizing fields-scale imaging. Sagittal and transverse images were obtained. Trans-abdominal images were also obtained. The jay ges were reviewed on a PACS workstation. COMPARISON: None. FINDINGS: There is a single live intrauterine . heart rate is 134 beats per minute. Position is cephalic and placenta is fundal grade 1. There is no placenta previa. The cervix is closed with a length of 3.0 cm. IMPRESSION: 1. Cervical length is 3.0 cm. RPTAT: QQ .Andres Doan MD, MD Date Time Electronically viewed and signed by .Andres Doan MD, on 02/09/2017 19:10 .R/
[2017-02-09] MEDS ORDERED: DOCUSATE SODIUM 100 MG CAP PO PRN (22:00)
--- NOTE | 2017-02-09 22:03 | HP ---
Date/Time of Note Date/Time of Note DATE: 02/09/17 TIME: 21:49 OB - History Hx of Present Free Text/Dictation 31 yo P0 @ 32.3 wks, presents with severe back pain and pre-term ctx Good FM, no VB, no LOF, + ctx She was admitted several weeks ago for the same pain, which was attributed to an 8mm renal stone Chief Complaint: back pain and ctx : 1 Para: 0 Care: Good Care Ultrasounds: Normal mid trimester US Other Concerns: renal calculus Past Family/Social History * Past Medical, Surgical, Family and Obstetric Histories reviewed from chart. OB Admission Exam Vital Signs Vital Signs Vital Signs Date Time Temp Pulse Resp B/P Pulse Ox O2 Delivery O2 Flow Rate FiO2 02/09/17 17:16 97.7 61 128/61 Physical Exam Abdomen: WNL Extremities: Normal Heart Rate: 140's Accelerations: Accelerations Present Decelerations: No Decelerations (1) Varibility: Moderate Contractions on Admission: 6-10 Minutes Apart Intensity: Mild OB Assessment/Plan Other Assessment: 31 yo P0 @ 32.3 wks w pre-term ctx - possible renal calculus; will repeat renal ultrasound - possible UTI; u/a shows WBC and blood; will start Keflex - possible PTL- cervical length was 3 and cervix appears closed on sono; nml BERTO , BPP 8/8; will give betamethasone to promote FLM; if patient continues matilde, will start magnesium sulfate ROSHAN AUGUST MD Feb 09, 2017 22:02
--- NOTE | 2017-02-09 22:57 | RADRPT ---
PROCEDURE: US Renal CLINICAL INDICATION: Pain TECHNIQUE: Multiple sonographic images of the kidneys and bladder were obtained. Evaluation of th e kidneys and bladder was performed as well with fields scale and color and Doppler evaluation using a curved array transducer. The images were reviewed on a high-resolution PACS workstation. COMPARISON: 01/23/2017 FINDINGS: The right kidney measures 10.02 cm. The left kidney measures 11.3 cm. Renal cortical echogenicity is within normal limits. There is minimal right pelvocaliectasis. There is no left hydronephrosis. Kidneys are otherwise normal appearance. No perinephric fluid collection is seen. The bladder is p oorly characterized.. IMPRESSION: Minimal right pelvocaliectasis. Otherwise negative. Urinary bladder not well characterized. RPTAT: HMVK .Michael Gallo MD, MD Date Time Electronically viewed and signed by .Michael Gallo MD, MD on 02/09/2017 22:56 .K/
[2017-02-09] MEDS: morphine 4 MG/ML VIAL IV PRN (23:13)
[2017-02-09] MEDS: CEPHALEXIN 500 MG CAP PO SCH (23:43)
[2017-02-09] MEDS: BETAMET NA PHOS/AC(6 MG/ML) 5ML INJ IM SCH (23:43)
[2017-02-10 00:12] LABS: BASOPHILS % 0.2 % (0.0-2.0); EOSINOPHILS # 0.1 10^3/ul (0.0-0.5); EOSINOPHILS % 0.9 % (0.0-7.0); HEMOGLOBIN 12.3 g/dl (12.0-16.0); LYMPHOCYTES # 3.5 10^3/ul (0.8-2.9); LYMPHOCYTES % 29.7 % (15.0-51.0); MEAN CORPUSCULAR HEMOGLOBIN 31.9 pg (29.0-33.0); MEAN CORPUSCULAR HGB CONC 36.2 g/dl (32.0-37.0); MEAN CORPUSCULAR VOLUME 88.1 fl (82.0-101.0); MEAN PLATELET VOLUME 11.5 fl (7.4-10.4); MONOCYTE # 0.8 10^3/ul (0.3-0.9); MONOCYTES % 6.7 % (0.0-11.0); NEUTROPHIL # 7.4 10^3/ul (1.6-7.5); PLATELET COUNT 254 10^3/UL (140-415); RED BLOOD COUNT 3.86 10^6/ul (4.20-5.40); RED CELL DISTRIBUTION WIDTH 14.5 % (11.5-14.5); WHITE BLOOD COUNT 11.9 10^3/ul (4.8-10.8)
[2017-02-10 01:39] LABS: ADD SCAN DIFF NO
[2017-02-10] MEDS: LACTATED RINGER'S 1,000 ML IV SCH ×6 (03:46→23:17)
[2017-02-10] MEDS: morphine 4 MG/ML VIAL IV PRN (05:25)
[2017-02-10] MEDS: MULTIVIT/MIN/FOLATE/IRON/PREN TAB PO SCH (09:11)
[2017-02-10] MEDS: CEPHALEXIN 500 MG CAP PO SCH ×4 (09:11→23:49)
[2017-02-10] MEDS: ACETAMINOPHEN 325 MG TAB PO PRN (11:24)
--- NOTE | 2017-02-10 11:49 | PN ---
Date/Time of Note Date/Time of Note DATE: 02/10/17 TIME: 11:34 OB Subjective Subjective Subjective February 102016 OB high risk visit. This patient is 31 yol about 32 and 4/7 week Came in yesterday C/O lower abdominal and back pain On exam abdomen is soft, slight tenderness of lower abdomen and suprapubic area. No contraction , FHT is normal on pelvic exam; cervix is closed , no bleeding, no real tenderness. lung are clear She in now placed on [id number] mg BID,. Will change it to Q 6 hour pending the result of urine culture On ultrasound study there is a report of R Pelvocaliectasis, otherwise normal findings In fact no significant finding explaining of this patent's complaint Laboratory Tests Test 02/09/17 17:15 02/09/17 23:50 Urine Color YELLOW Urine Clarity SLIGHTLY CLOUDY Urine pH 5.0 Urine Specific [place] 1.023 Urine Ketones NEGATIVEmg/dL Urine Nitrite NEGATIVEmg/dL Urine Bilirubin NEGATIVEmg/dL Urine Urobilinogen NEGATIVEmg/dL Urine Leukocyte Esterase 3+Herrera/ul Urine Microscopic RBC 4/HPF Urine Microscopic WBC 4/HPF Urine Squamous Epithelial Cells FEW/HPF Urine Bacteria FEW/HPF Urine Mucus FEW/HPF Urine Hemoglobin 1+mg/dL Urine Glucose NEGATIVEmg/dL Urine Total Protein 1+mg/dl White Blood Count 11.910^3/ul Red Blood Count 3.8610^6/ul Hemoglobin 12.3g/dl Hematocrit 34.0% Mean Corpuscular Volume 88.1fl Mean Corpuscular Hemoglobin 31.9pg Mean Corpuscular Hemoglobin Concent 36.2g/dl Red Cell Distribution Width 14.5% Platelet Count 02279^3/UL Mean Platelet Volume 11.5fl Neutrophils % 62.0% Lymphocytes % 29.7% Monocytes % 6.7% Eosinophils % 0.9% Basophils % 0.2% Nucleated Red Blood Cells % 0.0/100WBC Neutrophils # 7.410^3/ul Lymphocytes # 3.510^3/ul Monocytes # 0.810^3/ul Eosinophils # 0.110^3/ul Basophils # 0.010^3/ul Nucleated Red Blood Cells # 0.010^3/ul Current Medications Medications (Trade) Dose Ordered Sig/Ginger Route PRN Reason Start Time Stop Time Status Last Admin Dose Admin Lactated Ringer's 1,000 ml @ 125 mls/hr Q8H IV 02/09/17 18:00 02/09/17 21:55 DC 02/09/17 21:05 Lactated Ringer's (Lr) 1,000 ml @ 125 mls/hr Q8H IV 02/09/17 21:32 02/10/17 03:46 Betamethasone Acet/Betameth SodPhos ([place] Soluspan) 12 mg Q24H IM 02/09/17 22:00 02/10/17 22:01 02/09/17 23:43 Prenat Multivit/ [place]/Iron/Folic Ac ( S) 1 tab DAILY PO 02/10/17 09:00 02/10/17 09:11 Docusate Sodium (Colace) 100 mg DAILY PRN PO CONSTIPATION 02/09/17 22:00 Cephalexin (Keflex) 500 mg BID PO 02/09/17 22:00 02/10/17 09:11 Morphine Sulfate 3 mg 3 mg Q6H PRN IV PAIN 02/09/17 22:00 02/10/17 05:25 Lactated Ringer's (Lr) 1,000 ml @ 125 mls/hr Q8H IV 02/09/17 23:17 02/10/17 10:23 Acetaminophen (Tylenol Tab) 650 mg Q6H PRN PO PAIN AND OR ELEVATED TEMP 02/10/17 11:00 02/10/17 11:24 Plan : Will continue higher (normal) dose of Keflex and waiting the result of Urine culture . SHEA CEVALLOS MD Feb 10, 2017 11:49
[2017-02-10] MEDS ORDERED: BUTORPHANOL 2 MG INJ IV PRN (13:00)
[2017-02-10] MEDS: BETAMET NA PHOS/AC(6 MG/ML) 5ML INJ IM SCH (23:13)
[2017-02-11] MEDS: ACETAMINOPHEN 325 MG TAB PO PRN ×2 (03:09→09:51)
[2017-02-11] MEDS: CEPHALEXIN 500 MG CAP PO SCH ×3 (06:01→18:54)
[2017-02-11] MEDS: LACTATED RINGER'S 1,000 ML IV SCH ×2 (06:19→07:17)
[2017-02-11] MEDS ORDERED: OXYCODONE/ACETAMINOPHEN (5/325) TAB PO ONE (09:30)
[2017-02-11] MEDS ORDERED: DOCUSATE SODIUM 100 MG CAP PO PRN (09:30)
[2017-02-11] MEDS: MULTIVIT/MIN/FOLATE/IRON/PREN TAB PO SCH (09:52)
[2017-02-11] MEDS: SENNA TAB PO PRN ×2 (09:52→20:59)
--- NOTE | 2017-02-11 10:01 | QN ---
Documentation Comment 31 yo P0 @ 32+wks, presents with lower abdominal pain +FM No VB No LOF No CTXs No CVA tenderness NST reassuring [place] No CTXs Pelvic Deferred Abd Supra pubic tenderness --->Perinatalogy consult --->Hospitalist Consult --->Abdominal ultrasound DAVID GODFREY M.D. Feb 11, 2017 10:01
[2017-02-11] MEDS ORDERED: BETAMET NA PHOS/AC(6 MG/ML) 5ML INJ IM ONE (11:00)
--- NOTE | 2017-02-11 17:20 | RADRPT ---
PROCEDURE: MRI Abdomen without contrast. CLINICAL INDICATION: Abdominal pain. There is a question of appendicitis. The patient is 34 weeks . TECHNIQUE: Multiplanar and multisequence MRI of the abdomen was performed without contrast. COMPARISON: Ultrasounds dated 02/09/2017. FINDINGS: There is a single intrauterine with a cephalic lie and a left lateral placenta. The ovari es and adnexa are unremarkable bilaterally. The appendix is not clearly identified but there is no inflammatory change or fluid in the right low er quadrant or right mid abdomen adjacent to the cecum. The liver, gallbladder, spleen, pancreas, a nd adrenal glands are unremarkable. There is no intra or extrahepatic biliary ductal dilatation. T here is mild right hydroureteronephrosis, likely physiologic. The visualized bowel demonstrates no wall thickening or evidence of obstruction. IMPRESSION: 1. Nonvisualization of the appendix, but without secondary findings to suggest acute appendicitis. 2. Single intrauterine . 3. Mild right hydroureteronephrosis, unchanged when compared the recent abdominal ultrasound, given the difference in technique. RPTAT: EE .Yimi Zacarias MD, MD Date Time Electronically viewed and signed by .Yimi Zacarias MD, MD on 02/11/2017 17:19 .P/
[2017-02-11] MEDS: metroNIDAZOLE 500 MG TAB PO SCH (20:59)
[2017-02-11] MEDS: morphine 4 MG/ML VIAL IV PRN (21:20)
[2017-02-12] MEDS: CEPHALEXIN 500 MG CAP PO SCH ×4 (00:30→20:04)
[2017-02-12] MEDS: metroNIDAZOLE 500 MG TAB PO SCH ×2 (09:15→20:55)
[2017-02-12] MEDS: MULTIVIT/MIN/FOLATE/IRON/PREN TAB PO SCH (09:15)
--- NOTE | 2017-02-12 11:29 | QN ---
Documentation Comment admitted for abdominal pain. history is conflicting. Subjective: c/o diffuse abdominal pain, denies vaginal bleeding, LOF per vagina, UCs, N/V/F/ C. reports tolerating regular diet with normal appetite. she reports last BM and last flatus was 3 days ago. she has been getting Narcotics, but etiology of pain is not clear. had MRI, I reviewed the MRI Objective: Afebrile, VSS NAD A&O Abdomen: soft, trace tender, gravid Extremities: mild edema bilaterally Assesment: IUP 32 weeks Abdominal pain. ? etiology. MRI only showed mild R. [place] she is on Abx Keflex constipation plan: continue observation stop Narcotics Tylenol prn laxatives plan: current care MATHEW GARLAND MD Feb 12, 2017 11:29
[2017-02-12] MEDS ORDERED: MAGNESIUM HYDROXIDE 30ML CUP PO PRN (11:30)
[2017-02-12] MEDS ORDERED: POLYETHYLENE GLYCOL 17 GM PACKET GTB PRN (11:30)
[2017-02-12] MEDS: ACETAMINOPHEN 325 MG TAB PO PRN (20:04)
[2017-02-13] MEDS: CEPHALEXIN 500 MG CAP PO SCH ×2 (01:01→06:17)
[2017-02-13] MEDS: ACETAMINOPHEN 325 MG TAB PO PRN (05:23)
[2017-02-13] MEDS: metroNIDAZOLE 500 MG TAB PO SCH (09:50)
[2017-02-13] MEDS: MULTIVIT/MIN/FOLATE/IRON/PREN TAB PO SCH (09:50)
--- NOTE | 2017-02-13 11:05 | PD.PPDC ---
NETWORK SECURITY OFFICER Discharge Instruction Condition Patient Condition: Good Diet Diet: Resume Regular Diet Activity/Restrictions Activity: Normal Activity Follow-up Follow-up with Physician: 2, Day/Days Return to clinic for HOME ECONOMIST Instructions: Fever greater than 101 Chills Worsening abdominal pain Excessive Vaginal Bleeding OB Instructions: Depression Blurried Vision Headache TALAT BRISCOE MD Feb 13, 2017 11:05
--- NOTE | 2017-02-13 11:28 | RADRPT ---
PROCEDURE: Biophysical profile CLINICAL INDICATION: distress. Decreased movements. Abdominal pain. TECHNIQUE: Color and fields-scale ultrasound images of an intrauterine gestation were obtained. COMPARISON: February 09, 2017 FINDINGS: A single live intrauterine gestation is identified in cephalic position with an estimated hear t rate of 139 beats per minute. The placenta is located posteriorly and is a grade II. The cervix is obscured by head shadows. No evidence of abruption identified. BERTO is 7.8 cm. movement 2/2. tone 2/2. breathing movement 2/2. Qualitative AFV 2/2 Total biophysical profile 03/21 IMPRESSION: 03/21 biophysical profile. RPTAT: AA .French Dudley MD, Date Time Electronically viewed and signed by .French Dudley MD, MD on 02/13/2017 11:27 .P/
== END 2017-02-13 14:45 | disposition home or self-care (01) | DRG 781 ==
LOC: OBT 16:48 → L-D 16:48 → OBT 21:45 → OBG 21:45
PROVIDERS: ADMIT Obstetrics & Gynecology; ATTEND Obstetrics & Gynecology
DX: O23.43 Unspecified infection of urinary tract in pregnancy, third trimester (principal); Z3A.32 32 weeks gestation of pregnancy; N13.6 Pyonephrosis; O23.03 Infections of kidney in pregnancy, third trimester
CPT/HCPCS: 36415; 74181; 76775; 76817; 76818; 81001; 85025; 87086; 96360; 96361; G0463; J0595; J0702; J2270; J7120

== ENCOUNTER 2017-02-13 21:25 | Inpatient (IN) | payer OTHER ==
[~2017-02-13] VITALS: Ht 154.9 cm; Wt 88.7 kg
[2017-02-13 21:54] VITALS: Ht 154.9 cm; Wt 88.7 kg
[2017-02-13] MEDS ORDERED: LACTATED RINGER'S 1,000 ML IV ONE (22:30)
[2017-02-13] MEDS ORDERED: morphine 4 MG/ML VIAL IV PRN (22:30)
[2017-02-13] MEDS: ONDANSETRON 4 MG INJ IV PRN (22:55)
[2017-02-13 22:58] LABS: ADD SCAN DIFF NO
[2017-02-13 23:01] LABS: BASOPHILS % 0.2 % (0.0-2.0); EOSINOPHILS % 0.2 % (0.0-7.0); HEMATOCRIT 37.8 % (37.0-47.0); HEMOGLOBIN 13.1 g/dl (12.0-16.0); LYMPHOCYTES # 2.8 10^3/ul (0.8-2.9); LYMPHOCYTES % 19.9 % (15.0-51.0); MEAN CORPUSCULAR HGB CONC 34.7 g/dl (32.0-37.0); MEAN CORPUSCULAR VOLUME 89.4 fl (82.0-101.0); MONOCYTE # 1.1 10^3/ul (0.3-0.9); MONOCYTES % 7.7 % (0.0-11.0); NEUTROPHIL # 10.1 10^3/ul (1.6-7.5); NEUTROPHILS % 70.9 % (39.0-77.0); NUCLEATED RED BLOOD CELLS% 0.3 /100WBC (0.0-0.0); PLATELET COUNT 275 10^3/UL (140-415); RED BLOOD COUNT 4.23 10^6/ul (4.20-5.40); RED CELL DISTRIBUTION WIDTH 14.7 % (11.5-14.5); WHITE BLOOD COUNT 14.2 10^3/ul (4.8-10.8)
[2017-02-13 23:21] LABS: ALBUMIN 3.7 g/dl (3.3-4.9); ALBUMIN/GLOBULIN RATIO 1.19; BILIRUBIN,INDIRECT 0.1 mg/dl (0-1.1); BILIRUBIN,TOTAL 0.1 mg/dl (0.2-1.3); CALCIUM 9.3 mg/dl (8.4-10.2); CREATININE 0.57 mg/dl (0.44-1.00); POTASSIUM 3.7 mmol/L (3.5-5.1); TOTAL PROTEIN 6.8 g/dl (6.1-8.1)
[2017-02-13] MEDS ORDERED: LACTATED RINGER'S 1,000 ML IV SCH (23:51)
[2017-02-14] MEDS ORDERED: LACTATED RINGER'S 1,000 ML IV SCH
[2017-02-14] MEDS ORDERED: AMPICILLIN 2 GM/NS (PMX) 100 ML IVPB SCH (01:00)
[2017-02-14] MEDS ORDERED: hydrOXYzine HCL 100 MG INJ IM PRN (01:30)
--- NOTE | 2017-02-14 01:33 | HP ---
Date/Time of Note Date/Time of Note DATE: 02/14/17 TIME: 01:01 OB - History Hx of Present Free Text/Dictation 02/14/2017 Chief Complaint: Right low back pain radiating to the R lower abdomen, Epigastric pain : 1 Para: 0 Spontaneous : 0 Obstetrical Complications: None Other Concerns: Patient presented today again to triage after discharged home. 31 years old with IUP at 33 weeks with care with Dr. Briceño admitted on 02/09/2017 due to abdominal pain. had been hospitalized until yesterday. S/p MRI of the abdomen and pelvis and renal ultrasound. consistent with mild hydroureter otherwise non significant. Patient discharged home today. Presented again last night with lower back pain with radiation to the RLQ as well as Nausea and vomiting and RUQ pain. Denies any fever or chills. she rates her pain 9/10. received a dose of morphine in triage and her pain decreased to 6./10. Denies any LOF, vaginal bleeding or decreased movement or contractions.. at 33 weeks. FHT noted to be cat 1. MRI of the abdomen 3 days ago, could not see the appendix, how ever there was not clear secondary evidence of appendicitis. There was no clear evidence of cholecystitis in MRI. Mild Right pyelectasis noted as well. Labs shows elevated WBC as well as LFT. Her blood pressure noted to be elevated in 140-150/80's when she was in pain. Patient denies any complication during her course. Past Family/Social History * Past Medical, Surgical, Family and Obstetric Histories reviewed from chart. OB Admission Exam Physical Exam HEENT: WNL Heart: Rhythm Normal Lungs: Clear Abdomen: Abnormal (There is tenderness in the RUQ as well as tenderness in the RLQ and rebound tenderness in the RLQ , ? [place] area. Abdomen is soft, no guarding, no rigidity, No CVA tenderness, no uterine tenderness. ) Extremities: Normal Membranes: Intact Heart Rate: 130's Last 72 hourBlood Glucose PROCEDURE: Biophysical profile CLINICAL INDICATION: distress. Decreased movements. Abdominal pain. TECHNIQUE: Color and fields-scale ultrasound images of an intrauterine gestation were obtained. COMPARISON: February 09, 2017 FINDINGS: A single live intrauterine gestation is identified in cephalic position with an estimated heart rate of 139 beats per minute. The placenta is located posteriorly and is a grade II. The cervix is obscured by head shadows. No evidence of abruption identified. BERTO is 7.8 cm. movement 2/2. tone 2/2. breathing movement 2/2. Qualitative AFV 2/2 Total biophysical profile 03/21 IMPRESSION: 03/21 biophysical profile. Last 72 hours Lab Results CBC & BMP 02/13/17 22:40 Liver Function Test 02/13/17 22:40 Alanine Aminotransferase (ALT/SGPT) 156 H Albumin 3.7 Alkaline Phosphatase 150 H Aspartate Amino Transf (AST/SGOT) 139 H Direct Bilirubin 0.00 Total Protein 6.8 OB Assessment/Plan Other Assessment: IUP at 35 weeks and 2 days by her reported LEN . Growth ultrasound requested and pending. Patient started care late. Epigastric pain and RUQ pain, Nausea, Elevated WBC increasing, increasing LFT, can not r/o cholecystitis.since MRI is not specific for diagnosis of the gall bladder disease. will order a RUQ ultrasound. Patient appears to have some inflammatory process. GI consult placed. Ancef started. RLQ pain and tenderness, + rebound tenderness. R/o appendicitis. CRP pending. Ultrasound of the RUQ , RLQ and renal ultrasound ordered General surgery consultation. Discussed and consulted with Dr. Parada. Agreed to evaluate for appendicitis Elevated blood pressure, likely related to pain.Will continue to monitor closely. Other plan: Ancef 2 gram IV Q 6 hours Repeat LFT every 6 hours for the trend Pain control. allergic to stadol . Consider Demerol 50 mg Q 3 hours Follow up with General surgery and GI consultation Follow up with Abdominal us ( RUQ and RLQ and renal us ). CRP pending. Continuos monitoring. UA pending. Perinatology consultation tomorrow. LAUREEN SINCLAIR MD Feb 14, 2017 01:12
[2017-02-14] MEDS: MEPERIDINE 50 MG INJ IV PRN ×8 (01:36→23:55)
[2017-02-14] MEDS: CEFAZOLIN 2 GM/50 ML (PMX) 50 ML IVPB SCH ×5 (01:37→23:55)
[2017-02-14] MEDS ORDERED: HYDROmorphONE 2 MG/ML SYG IV PRN (01:55)
[2017-02-14] MEDS: DIPHENHYDRAMINE 50 MG INJ IV PRN ×5 (01:59→23:55)
[2017-02-14 02:19] LABS: ADD UMIC YES; UR ASCORBIC ACID NEGATIVE (NEGATIVE); UR BILIRUBIN (Dip) NEGATIVE (NEGATIVE); UR BLOOD (Dip) NEGATIVE (NEGATIVE); UR CLARITY SLIGHTLY CLOUDY (CLEAR); UR COLOR YELLOW (YELLOW); UR GLUCOSE (Dip) NEGATIVE (NEGATIVE); UR KETONES (Dip) NEGATIVE (NEGATIVE); UR LEUKOCYTE ESTERASE (Dip) 1+ Leu/ul (NEGATIVE); UR MUCUS FEW /HPF (NONE SEEN); UR NITRITE (Dip) NEGATIVE (NEGATIVE); UR RBC 1 /HPF (0-5); UR SPECIFIC GRAVITY (Dip) 1.025 (1.003-1.030); UR SQUAMOUS EPITHELIAL CELL FEW /HPF (FEW); UR TOTAL PROTEIN (Dip) 1+ mg/dl (NEGATIVE); UR UROBILINOGEN (Dip) NEGATIVE (NEGATIVE)
--- NOTE | 2017-02-14 02:20 | RADRPT ---
PROCEDURE: Abdominal ultrasound, limited. CLINICAL INDICATION: Abdominal pain. TECHNIQUE: Multiple real-time images were acquired of the patient's right upper abdomen utilizing a high resolution transducer. COMPARISON: 01/23/2017. FINDINGS: The liver demonstrates normal echogenicity and size measuring 15.1 cm. There is no focal mass or in trahepatic biliary ductal dilatation. The portal vein is patent. The gallbladder is not distended. No gallstones are identified. Echogenic sludge is seen within the gallbladder. There is no pericho lecystic fluid or gallbladder wall thickening. The common bile duct measures 3.2 mm in maximal dime nsion. The pancreas is obscured by overlying bowel gas. No free fluid is identified. The right kidney is normal size and echogenicity measuring 10.1 cm. There is no focal renal mass or echogenic calculus identified. There is no obstructive uropathy. IMPRESSION: Gallbladder sludge without ultrasound evidence of cholecystitis. Pancreas obscured by overlying bowel gas. .Mike Prince MD, MD Date Time Electronically viewed and signed by .Mike Prince MD, MD on 02/14/2017 02:19 .T/
--- NOTE | 2017-02-14 02:20 | RADRPT ---
PROCEDURE: Abdominal ultrasound, limited. CLINICAL INDICATION: Abdominal pain. TECHNIQUE: Multiple real-time images were acquired of the right lower quadrant utilizing a high r esolution transducer. COMPARISON: None FINDINGS: Normal compressible bowel is present. There is no abnormal mass or fluid collection identified. Th e appendix is not visualized. IMPRESSION: Appendix not visualized. If clinical concern for appendicitis persists, and MR or CT of the abdomen and pelvis without contra st should be considered. .iMke Prince MD, MD Date Time Electronically viewed and signed by .Mike Prince MD, MD on 02/14/2017 02:19 .T/
--- NOTE | 2017-02-14 02:21 | RADRPT ---
PROCEDURE: US OB. CLINICAL INDICATION: Pain. TECHNIQUE: Multiple sonographic images of the pelvis were obtained. Transabdominal imaging only w as performed. The images were reviewed on a PACS workstation. COMPARISON: 02/13/2017. FINDINGS: Single live intrauterine is identified. Cardiac activity is present with 152 beats per mi nute. There is a vertex presentation. Measurements: BPD = 32 weeks 1 day. HC = 32 weeks 2 days. AC = 30 weeks 1 day. FL = 33 weeks 1 day. Estimated gestational age of approximately 32 weeks 0 days. The estimated date of delivery is 04/11/2017. The EFW = 1775 g which is at the 6.7 percentile. Limited evaluation of anatomy demonstrates slightly elevated femur length to abdominal circumf erence and femur length to head circumference.. The placenta is posterior fundal. There is no evidence for placenta previa. Cervix is 3.6 cm in length and closed. IMPRESSION: Single live intrauterine gestation of approximately 32 weeks 0 days. Slightly abnormal anatom y ratio as described above. Recommend follow-up examination. RPTAT: HMVK .Michael Gallo MD, Date Time Electronically viewed and signed by .Michael Gallo MD, on 02/14/2017 02:20 .K/
[2017-02-14] MEDS: LACTATED RINGER'S 1,000 ML IV SCH ×4 (04:11→23:55)
--- NOTE | 2017-02-14 08:25 | HP ---
Date/Time of Note Date/Time of Note DATE: 02/14/17 TIME: 08:22 Assessment/Plan VTE Prophylaxis VTE Prophylaxis Intervention: ambulation Assessment/Plan Assessment/Plan Unclear etiology of abdominal pain Appendicitis is very unlikely based on MRI findings as well as the fact the symptoms have been going on for 2 week Doubt gallbladder as well as patient is no evidence of cholecystitis on ultrasound. If still clinically concerned, recommend potentially repeating MRI HPI/ROS Admit Date/Time Admit Date/Time Feb 13, 2017 at 23:45 Hx of Present Illness The patient is a 32-year-old female who is 32 weeks . She is complaining of a two-week history of abdominal pain, mostly localized to right upper quadrant as well as right flank back pain. She denies nausea or vomiting. She denies fevers, chills or night sweats. She was hospitalized at [facility] for 4 days and was discharged home recently. She returned back to the ER last night. Due to the concern for appendicitis, I was called for consultation. This is the patient's first . She denies prior episodes of pain before this 2 week history. PMH/Family/Social Past Medical History Medical History: no pertinent history Past Surgical History Past Surgical Hx: no surgical history Family History Significant Family History: no pertinent family hx Social History Alcohol Use: none Smoking Status: Never smoker Drug Use: none Exam/Review of Systems Vital Signs Vitals Intake and Output 02/13/17 02/13/17 02/14/17 15:00 23:00 07:00 Intake Total 1150 ml Output Total 550 ml Balance 600 ml Exam Constitutional: alert, oriented, well developed Psych: no complaints Head: normocephalic Eyes: nl conjunctiva ENMT: nl external ears & nose Neck: supple Respiratory: clear to auscultation Cardiovascular: regular rate and rhythm Gastrointestinal: soft (Consistent with 32 week gravid uterus, some right upper quadrant tenderness, but most tenderness is over the right ribs) Extremities: normal pulses Neurological: [employer] II-XII intact Skin: nl turgor Labs Result Diagram: 02/13/17223902/13/172239 Medications Medications Current Medications Ondansetron HCl 4 mg 4 mg Q4H PRN IV NAUSEA AND/OR VOMITING Last administered on 02/13/17t 22:55; Admin Dose 4 MG; Start 02/13/17 at 22:30 Cefazolin Sodium/ Dextrose (Ancef 2 Gm/50 ml (Pmx)) 50 ml @ 100 mls/hr Q6 IVPB Last administered on 02/14/17 06:02; Admin Dose 100 MLS/HR; Start 02/14/17 at 01:00 Meperidine HCl (Demerol) 50 mg Q3 PRN IV PAIN Last administered on 02/14/17 08: 12; Admin Dose 50 MG; Start 02/14/17 at 01:30 Diphenhydramine HCl 25 mg 25 mg Q3 PRN IV PAIN Last administered on 02/14/17 05 :15; Admin Dose 25 MG; Start 02/14/17 at 01:30 Lactated Ringer's (Lr) 1,000 ml @ 150 mls/hr Q6H40M IV Last administered on 04:11; Admin Dose 150 MLS/HR; Start 02/14/17 at 01:00 Procedures Procedures Patient: MICHAEL LEE : 1985 Age: 31 Sex: F MR #: [id number] DOS: 02/14/17 0000 Ordering MD: LAUREEN SINCLAIR [place] [facility] [place] [facility] PROCEDURE: Abdominal ultrasound, limited. CLINICAL INDICATION: Abdominal pain. TECHNIQUE: Multiple real-time images were acquired of the patient's right upper abdomen utilizing a high resolution transducer. COMPARISON: 01/23/2017. FINDINGS: The liver demonstrates normal echogenicity and size measuring 15.1 cm. There is no focal mass or intrahepatic biliary ductal dilatation. The portal vein is patent. The gallbladder is not distended. No gallstones are identified. Echogenic sludge is seen within the gallbladder. There is no pericholecystic fluid or gallbladder wall thickening. The common bile duct measures 3.2 mm in maximal dimension. The pancreas is obscured by overlying bowel gas. No free fluid is identified. The right kidney is normal size and echogenicity measuring 10.1 cm. There is no focal renal mass or echogenic calculus identified. There is no obstructive uropathy. IMPRESSION: Gallbladder sludge without ultrasound evidence of cholecystitis. Pancreas obscured by overlying bowel gas. Patient: MICHAEL LEE : 1985 Age: 31 Sex: F MR #: [id number] DOS: 02/11/17 0000 Ordering MD: DAVID GODFREY M.D. [place] [facility] [place] [facility] PROCEDURE: MRI Abdomen without contrast. CLINICAL INDICATION: Abdominal pain. There is a question of appendicitis. The patient is 34 weeks . TECHNIQUE: Multiplanar and multisequence MRI of the abdomen was performed without contrast. COMPARISON: Ultrasounds dated 02/09/2017. FINDINGS: There is a single intrauterine with a cephalic lie and a left lateral placenta. The ovaries and adnexa are unremarkable bilaterally. The appendix is not clearly identified but there is no inflammatory change or fluid in the right lower quadrant or right mid abdomen adjacent to the cecum. The liver, gallbladder, spleen, pancreas, and adrenal glands are unremarkable. There is no intra or extrahepatic biliary ductal dilatation. There is mild right hydroureteronephrosis, likely physiologic. The visualized bowel demonstrates no wall thickening or evidence of obstruction. IMPRESSION: 1. Nonvisualization of the appendix, but without secondary findings to suggest acute appendicitis. 2. Single intrauterine . 3. Mild right hydroureteronephrosis, unchanged when compared the recent abdominal ultrasound, given the difference in technique. CHRISTOPHER VALLE MD Feb 14, 2017 08:24
[2017-02-14 09:43] LABS: ALBUMIN 3.2 g/dl (3.3-4.9); BILIRUBIN,INDIRECT 0.1 mg/dl (0-1.1); BILIRUBIN,TOTAL 0.1 mg/dl (0.2-1.3)
--- NOTE | 2017-02-14 10:55 | CONS ---
Date/Time of Note Date/Time of Note DATE: 02/14/17 TIME: 10:44 Consultation Date/Type/Reason Admit Date/Time February 14, 2017 High risk hospital consult Initial Consult Date This patient is 31 years old primigravida with due date of March 19, 2017 which makes her about 33 weeks and 1 day. She was hospitalized 3 days ago with complaint of abdominal pain ,right lower quadrant pain and right upper quadrant pain Two days ago had some workup including ultrasound MRI and blood work . Except for slightly elevated WBC and a slightly high SGOT and SGPT no other abnormal finding and she was discharged home., but she returned again yesterday afternoon complaining of the pain over mostly on the right side of the abdomen. On examination she has some tenderness of the right upper quadrant as well as right lower quadrant and right costal vertebral angle. Occasional contraction. Uterus is basically soft. heart tone is normal heart tracing is normal no deceleration no anomaly. Her temperature is normal, heart rate is within normal limits On pelvic examination 2 days ago there was no vaginal bleeding cervix was closed On MRI there was reported right hydroureterocalyasis ! No evidence of cholecystitis or cholelithiasis, only some sludge in the gallbladder Kidneys were basically reported normal right kidney slightly larger. Bowel sounds are normal Laboratory Tests Test 02/13/17 21:30 02/13/17 22:40 02/14/17 06:30 Urine Color YELLOW Urine Clarity SLIGHTLY CLOUDY Urine pH 6.0 Urine Specific [place] 1.025 Urine Ketones NEGATIVEmg/dL Urine Nitrite NEGATIVEmg/dL Urine Bilirubin NEGATIVEmg/dL Urine Urobilinogen NEGATIVEmg/dL Urine Leukocyte Esterase 1+Herrera/ul Urine Microscopic RBC 1/HPF Urine Microscopic WBC 3/HPF Urine Squamous Epithelial Cells FEW/HPF Urine Mucus FEW/HPF Urine Hemoglobin NEGATIVEmg/dL Urine Glucose NEGATIVEmg/dL Urine Total Protein 1+mg/dl White Blood Count 14.210^3/ul Red Blood Count 4.2310^6/ul Hemoglobin 13.1g/dl Hematocrit 37.8% Mean Corpuscular Volume 89.4fl Mean Corpuscular Hemoglobin 31.0pg Mean Corpuscular Hemoglobin Concent 34.7g/dl Red Cell Distribution Width 14.7% Platelet Count 46107^3/UL Mean Platelet Volume 12.0fl Neutrophils % 70.9% Lymphocytes % 19.9% Monocytes % 7.7% Eosinophils % 0.2% Basophils % 0.2% Nucleated Red Blood Cells % 0.3/100WBC Neutrophils # 10.110^3/ul Lymphocytes # 2.810^3/ul Monocytes # 1.110^3/ul Eosinophils # 0.010^3/ul Basophils # 0.010^3/ul Nucleated Red Blood Cells # 0.010^3/ul Sodium Level 137mmol/L Potassium Level 3.7mmol/L Chloride Level 98mmol/L Carbon Dioxide Level 25mmol/L Anion Gap 18 Blood Urea Nitrogen 11mg/dl Creatinine 0.57mg/dl Glucose Level 85mg/dl Calcium Level 9.3mg/dl Total Bilirubin 0.1mg/dl 0.1mg/dl Direct Bilirubin 0.00mg/dl 0.00mg/dl Indirect Bilirubin 0.1mg/dl 0.1mg/dl Aspartate Amino Transf (AST/SGOT) 139IU/L 141IU/L Alanine Aminotransferase (ALT/SGPT) 156IU/L 137IU/L Alkaline Phosphatase 150IU/L 135IU/L Total Protein 6.8g/dl 6.0g/dl Albumin 3.7g/dl 3.2g/dl Globulin 3.10g/dl Albumin/Globulin Ratio 1.19 Amylase Level 120U/L Lipase 97U/L Current Medications Medications (Trade) Dose Ordered Sig/Ginger Route PRN Reason Start Time Stop Time Status Last Admin Dose Admin Morphine Sulfate (morphine) 3 mg Q3H PRN IV PAIN 02/13/17 22:30 02/14/17 07:30 DC 02/13/17 22:54 3 MG Ondansetron HCl 4 mg 4 mg Q4H PRN IV NAUSEA AND/OR VOMITING 02/13/17 22:30 02/13/17 22:55 4 MG Lactated Ringer's 1,000 ml @ 1,000 mls/hr Q1H ONCE IV 02/13/17 22:30 02/13/17 23:29 DC 02/13/17 23:00 1,000 MLS/HR Lactated Ringer's 1,000 ml @ 125 mls/hr Q8H IV 02/14/17 00:00 02/14/17 03:47 DC 02/14/17 00:04 125 MLS/HR Lactated Ringer's (Lr) 1,000 ml @ 125 mls/hr Q8H IV 02/13/17 23:51 02/14/17 03:47 DC Hydromorphone HCl 2 mg 2 mg Q3 PRN IV PAIN 02/14/17 01:55 02/14/17 01:55 DC Ampicillin 100 ml @ 100 mls/hr Q6 IVPB 02/14/17 01:00 02/14/17 01:00 DC Cefazolin Sodium/ Dextrose (Ancef 2 Gm/50 ml (Pmx)) 50 ml @ 100 mls/hr Q6 IVPB 02/14/17 01:00 02/14/17 06:02 100 MLS/HR Meperidine HCl (Demerol) 50 mg Q3 PRN IV PAIN 02/14/17 01:30 02/14/17 08:12 50 MG Hydroxyzine HCl (Vistaril Inj) 25 mg Q3H PRN IM PAIN 02/14/17 01:30 02/14/17 01:32 DC Diphenhydramine HCl 25 mg 25 mg Q3 PRN IV PAIN 02/14/17 01:30 02/14/17 05:15 25 MG Lactated Ringer's (Lr) 1,000 ml @ 150 mls/hr Q6H40M IV 02/14/17 01:00 02/14/17 04:11 150 MLS/HR 24 HR Interval Summary Free Text/Dictation We requested a surgical consult. Surgeon has seen her and is not impressed with any findings regarding the appendicitis or hydroureterocalyasis and recommended to have repeat MRI. Today she is taking 50 mg of Demerol every 3 hours because of her pain. We will discuss her case with the Dr. Fernandez . Constitutional: No chills, No diaphoresis, No disoriented, No febrile, No improved, No no complaints, No other, No poor po, No requiring IVF, No requiring O2 Exam/Review of Systems Vital Signs Vitals Intake and Output 02/13/17 02/13/17 02/14/17 15:00 23:00 07:00 Intake Total 1150 ml Output Total 550 ml Balance 600 ml Results Result Diagram: 02/13/17 2240 02/13/17 2240 Results 24 hrs Laboratory Tests Test 02/13/17 21:30 02/13/17 22:40 02/14/17 06:30 Urine Color YELLOW Urine Clarity SLIGHTLY CLOUDY A Urine pH 6.0 Urine Specific [place] 1.025 Urine Ketones NEGATIVE Urine Nitrite NEGATIVE Urine Bilirubin NEGATIVE Urine Urobilinogen NEGATIVE Urine Leukocyte Esterase 1+ H Urine Microscopic RBC 1 Urine Microscopic WBC 3 Urine Squamous Epithelial Cells FEW Urine Mucus FEW A Urine Hemoglobin NEGATIVE Urine Glucose NEGATIVE Urine Total Protein 1+ H White Blood Count 14.2 H Red Blood Count 4.23 Hemoglobin 13.1 Hematocrit 37.8 Mean Corpuscular Volume 89.4 Mean Corpuscular Hemoglobin 31.0 Mean Corpuscular Hemoglobin Concent 34.7 Red Cell Distribution Width 14.7 H Platelet Count 275 Mean Platelet Volume 12.0 H Neutrophils % 70.9 Lymphocytes % 19.9 Monocytes % 7.7 Eosinophils % 0.2 Basophils % 0.2 Nucleated Red Blood Cells % 0.3 H Neutrophils # 10.1 H Lymphocytes # 2.8 Monocytes # 1.1 H Eosinophils # 0.0 Basophils # 0.0 Nucleated Red Blood Cells # 0.0 Sodium Level 137 Potassium Level 3.7 Chloride Level 98 Carbon Dioxide Level 25 Anion Gap 18 H Blood Urea Nitrogen 11 Creatinine 0.57 Glucose Level 85 Calcium Level 9.3 Total Bilirubin 0.1 L 0.1 L Direct Bilirubin 0.00 0.00 Indirect Bilirubin 0.1 0.1 Aspartate Amino Transf (AST/SGOT) 139 H 141 H Alanine Aminotransferase (ALT/SGPT) 156 H 137 H Alkaline Phosphatase 150 H 135 H Total Protein 6.8 6.0 L Albumin 3.7 3.2 L Globulin 3.10 Albumin/Globulin Ratio 1.19 Amylase Level 120 Lipase 97 Medications Medications Current Medications Ondansetron HCl 4 mg 4 mg Q4H PRN IV NAUSEA AND/OR VOMITING Last administered on 02/13/17 22:55; Admin Dose 4 MG; Start 02/13/17 at 22:30 Cefazolin Sodium/ Dextrose (Ancef 2 Gm/50 ml (Pmx)) 50 ml @ 100 mls/hr Q6 IVPB Last administered on 02/14/17 06:02; Admin Dose 100 MLS/HR; Start 02/14/17 at 01:00 Meperidine HCl (Demerol) 50 mg Q3 PRN IV PAIN Last administered on 02/14/17 08: 12; Admin Dose 50 MG; Start 02/14/17 at 01:30 Diphenhydramine HCl 25 mg 25 mg Q3 PRN IV PAIN Last administered on 02/14/17 05 :15; Admin Dose 25 MG; Start 02/14/17 at 01:30 Lactated Ringer's (Lr) 1,000 ml @ 150 mls/hr Q6H40M IV Last administered on 04:11; Admin Dose 150 MLS/HR; Start 02/14/17 at 01:00 SHEA CEVALLOS MD Feb 14, 2017 10:54
[2017-02-14 12:48] LABS: ALBUMIN 3.1 g/dl (3.3-4.9); BILIRUBIN,INDIRECT 0.2 mg/dl (0-1.1); BILIRUBIN,TOTAL 0.2 mg/dl (0.2-1.3); TOTAL PROTEIN 5.8 g/dl (6.1-8.1)
[2017-02-14] MEDS: AL HYDROX/MG HYDROX/SIMETH 30 ML CUP PO PRN ×2 (14:07→18:41)
[2017-02-14 18:51] LABS: ALBUMIN 3.3 g/dl (3.3-4.9); BILIRUBIN,INDIRECT 0.2 mg/dl (0-1.1); BILIRUBIN,TOTAL 0.2 mg/dl (0.2-1.3); TOTAL PROTEIN 6.1 g/dl (6.1-8.1)
[2017-02-15 00:58] LABS: ALBUMIN 3.3 g/dl (3.3-4.9); BILIRUBIN,INDIRECT 0.3 mg/dl (0-1.1); BILIRUBIN,TOTAL 0.3 mg/dl (0.2-1.3); TOTAL PROTEIN 6.2 g/dl (6.1-8.1)
[2017-02-15] MEDS: LACTATED RINGER'S 1,000 ML IV SCH ×3 (03:40→12:52)
[2017-02-15] MEDS: MEPERIDINE 50 MG INJ IV PRN ×3 (04:22→14:25)
[2017-02-15] MEDS: DIPHENHYDRAMINE 50 MG INJ IV PRN ×3 (04:22→22:43)
[2017-02-15] MEDS: CEFAZOLIN 2 GM/50 ML (PMX) 50 ML IVPB SCH (06:08)
[2017-02-15] MEDS ORDERED: OXYTOCIN 30 UNITS/LR 500 ML BAG IV ONE (07:00)
[2017-02-15 07:20] LABS: ALBUMIN 3.2 g/dl (3.3-4.9); BILIRUBIN,INDIRECT 0.2 mg/dl (0-1.1); BILIRUBIN,TOTAL 0.2 mg/dl (0.2-1.3)
[2017-02-15] MEDS ORDERED: MAGNESIUM SULFATE 4 GM/100 ML 100 ML IVPB ONE ×2 (08:00→09:00)
--- NOTE | 2017-02-15 08:22 | QN ---
Documentation Comment Patient seen and evaluated complaining of epigastric pain systolic bp's 140'- 150's abd positive ruq/ epigastric tenderness gravid extremity plus 1 b/l pitting edema labs elevated liver enzymes a/ iup at 33 wks 2 wks ga, suspected pre-eclampsia with severe features already received 2 doses of steroid in her last admission p/ start magso4 repeat PIH labs 24 hour urine collection perinatology f/u nicu consult repeat bpp, sera, TALAT BRISCOE MD Feb 15, 2017 08:22
[2017-02-15] MEDS ORDERED: MISOPROSTOL 200 MCG TAB PR PRN (08:30)
[2017-02-15] MEDS ORDERED: CARBOPROST 250 MCG INJ IM PRN (08:30)
[2017-02-15] MEDS ORDERED: OXYTOCIN 30 UNITS/LR 500 ML IV PRN (08:30)
[2017-02-15] MEDS ORDERED: METHYLERGONOVINE 0.2 MG INJ IM PRN (08:30)
[2017-02-15] MEDS ORDERED: OXYTOCIN 30 UNITS/LR 500 ML IV SCH (08:30)
[2017-02-15] MEDS ORDERED: CEFAZOLIN 2 GM/50 ML (PMX) 50 ML IV SCH (08:30)
[2017-02-15] MEDS: MAGNESIUM SULFATE 20 GM/500 ML 500 ML IV SCH ×2 (09:16→19:03)
[2017-02-15 09:29] LABS: ADD SCAN DIFF NO
[2017-02-15 09:35] LABS: BASOPHILS % 0.2 % (0.0-2.0); EOSINOPHILS # 0.1 10^3/ul (0.0-0.5); EOSINOPHILS % 0.4 % (0.0-7.0); HEMATOCRIT 39.5 % (37.0-47.0); HEMOGLOBIN 13.3 g/dl (12.0-16.0); LYMPHOCYTES # 2.7 10^3/ul (0.8-2.9); LYMPHOCYTES % 19.7 % (15.0-51.0); MEAN CORPUSCULAR HEMOGLOBIN 30.4 pg (29.0-33.0); MEAN CORPUSCULAR HGB CONC 33.7 g/dl (32.0-37.0); MEAN CORPUSCULAR VOLUME 90.4 fl (82.0-101.0); MEAN PLATELET VOLUME 11.8 fl (7.4-10.4); MONOCYTE # 0.9 10^3/ul (0.3-0.9); MONOCYTES % 6.4 % (0.0-11.0); NEUTROPHIL # 9.8 10^3/ul (1.6-7.5); NEUTROPHILS % 72.7 % (39.0-77.0); NUCLEATED RED BLOOD CELLS% 0.1 /100WBC (0.0-0.0); PLATELET COUNT 238 10^3/UL (140-415); RED BLOOD COUNT 4.37 10^6/ul (4.20-5.40); RED CELL DISTRIBUTION WIDTH 14.6 % (11.5-14.5); WHITE BLOOD COUNT 13.4 10^3/ul (4.8-10.8)
[2017-02-15 09:46] LABS: ADD UMIC YES; UR ASCORBIC ACID NEGATIVE (NEGATIVE); UR BILIRUBIN (Dip) NEGATIVE (NEGATIVE); UR BLOOD (Dip) 1+ mg/dL (NEGATIVE); UR CLARITY CLEAR (CLEAR); UR COLOR STRAW (YELLOW); UR GLUCOSE (Dip) NEGATIVE (NEGATIVE); UR KETONES (Dip) TRACE mg/dL (NEGATIVE); UR LEUKOCYTE ESTERASE (Dip) TRACE Leu/ul (NEGATIVE); UR NITRITE (Dip) NEGATIVE (NEGATIVE); UR RBC 0 /HPF (0-5); UR SPECIFIC GRAVITY (Dip) 1.004 (1.003-1.030); UR SQUAMOUS EPITHELIAL CELL FEW /HPF (FEW); UR TOTAL PROTEIN (Dip) NEGATIVE (NEGATIVE); UR UROBILINOGEN (Dip) NEGATIVE (NEGATIVE)
[2017-02-15 09:49] LABS: INR 0.8; PROTIME 11.1 Sec (12.2-14.2); PT RATIO 0.9
[2017-02-15 09:50] LABS: PARTIAL THROMBOPLASTIN TIME 27.5 Sec (25.0-35.0)
[2017-02-15 09:53] LABS: ALBUMIN 3.5 g/dl (3.3-4.9); BILIRUBIN,INDIRECT 0.3 mg/dl (0-1.1); BILIRUBIN,TOTAL 0.3 mg/dl (0.2-1.3); TOTAL PROTEIN 6.4 g/dl (6.1-8.1)
[2017-02-15 09:56] LABS: ALBUMIN 3.5 g/dl (3.3-4.9); ALBUMIN/GLOBULIN RATIO 1.2; BILIRUBIN,INDIRECT 0.3 mg/dl (0-1.1); BILIRUBIN,TOTAL 0.3 mg/dl (0.2-1.3); CALCIUM 8.9 mg/dl (8.4-10.2); CREATININE 0.52 mg/dl (0.44-1.00); POTASSIUM 3.8 mmol/L (3.5-5.1); TOTAL PROTEIN 6.4 g/dl (6.1-8.1)
--- NOTE | 2017-02-15 10:13 | RADRPT ---
PROCEDURE: US OB biophysical profile. CLINICAL INDICATION: decreased movements, labor TECHNIQUE: Multiple sonographic images of the pelvis were obtained. The images were reviewed on a PACS workstation. COMPARISON: Yesterday FINDINGS: There is a single viable intrauterine gestation. Cardiac activity is present with 144 beats per min rincon. There is a vertex presentation. The placenta is posterior right. There is no evidence of placental abruption. There is a normal amount of amniotic fluid with an BERTO = 10.9 cm. Biophysical profile: movement 2/2 tone 2/2. breathing 2/2 BERTO 2/2 Total 03/21 RPTAT: AA . IMPRESSION: Normal biophysical profile. . .Frank Mccurdy MD, MD Date Time Electronically viewed and signed by .Frank Mccurdy MD, MD on 02/15/2017 10:13 .S/
[2017-02-15 12:51] LABS: ALBUMIN 3.7 g/dl (3.3-4.9); BILIRUBIN,INDIRECT 0.3 mg/dl (0-1.1); BILIRUBIN,TOTAL 0.3 mg/dl (0.2-1.3); TOTAL PROTEIN 6.8 g/dl (6.1-8.1)
--- NOTE | 2017-02-15 14:53 | QN ---
Documentation Job number: Neonatology consultation Comment Asked for consultation on 02/15/17. Mother is a 31-year-old 1 para 0 with the diagnosis of preeclampsia and was admitted with the right upper quadrant pain on 02/13/17. Mother was started on magnesium sulfate and also Ancef every 6 hours. Her labs are significant for elevated CBCs and also elevated liver enzymes. She received 2 doses of betamethasone on 02/09 as well as 02/10. Estimated weight on ultrasound is 1775 g with a gestational age of 32 weeks. Gestational age by dates is 33.2 weeks. Mother was sedated just before arriving to the room with the moderate to good dose of Demerol therefore was very drowsy. I spoke with mother for a short period of time and discuss quickly about what to expect as the infant is delivered. I discussed about the fetus being 33.2 weeks with possibility of respiratory distress and treatment with oxygen administration high flow nasal cannula bubble CPAP as needed depending on 's diagnosis of retained lung fluid or respiratory distress syndrome. Also discussed about the being on IV fluids initially and to be started on feedings when the 's respiratory status is stable. Discussed about overall good prognosis for 33 week and estimated length of stay of 3-4 weeks. As mother was drowsy I did not further discuss any problems in depth as she was unable to understand. If the is not delivered will redo the consult this evening or in a.m. Mother would like to breast-feed the infant and I encouraged her to pump breastmilk after the infant is born. Thank you for the consultation. LATASHA PRICE MD Feb 15, 2017 14:53
[2017-02-15] MEDS ORDERED: DEXTROSE 5%-LR 1,000 ML IV SCH (16:37)
[2017-02-15] MEDS: ONDANSETRON 4 MG INJ IV PRN (18:56)
[2017-02-15 19:14] LABS: ALBUMIN 3.4 g/dl (3.3-4.9); BILIRUBIN,INDIRECT 0.3 mg/dl (0-1.1); BILIRUBIN,TOTAL 0.3 mg/dl (0.2-1.3); TOTAL PROTEIN 5.9 g/dl (6.1-8.1)
[2017-02-15] MEDS ORDERED: LACTATED RINGER'S 1,000 ML IV ONE (20:00)
[2017-02-15] MEDS ORDERED: morphine SULFATE/PF (10 MG/10 ML) INJ ONE (20:19)
--- NOTE | 2017-02-15 20:20 | QN ---
Documentation Comment I spoke with Dr. Talat Olmos ( GI) specialist: He does not believe the elevated Liver Enzymes may be due to Sludge in Gull bladder. After Discussing patient continue elevated liver enzyme and worsening patient symptom. Dr. Fernandez recommending for Delivery by CD. I explained to patient Risk/benefits/alternative. Patient understands her epigastric pain may also be related to other etiology. All question were answered. TALAT BRISCOE MD Feb 15, 2017 20:19
[2017-02-15] MEDS ORDERED: OXYTOCIN 10 UNIT INJ ONE ×2 (20:31)
[2017-02-15] MEDS ORDERED: PHENYLephrine (100 MCG/ML) 5ML SYG ONE (20:31)
[2017-02-15] MEDS ORDERED: DEXAMETHASONE 4 MG/ML 1 ML INJ ONE (20:43)
[2017-02-15] MEDS ORDERED: KETOROLAC 30 MG INJ ONE (20:43)
[2017-02-15] MEDS ORDERED: METOCLOPRAMIDE 10 MG INJ ONE (20:43)
[2017-02-15] MEDS ORDERED: MEPERIDINE 100 MG INJ ONE (20:52)
[2017-02-15] MEDS ORDERED: KETOROLAC 30 MG INJ IV PRN (21:00)
[2017-02-15] MEDS ORDERED: ACETAMINOPHEN 500 MG TAB PO PRN (21:00)
[2017-02-15] MEDS ORDERED: NALBUPHINE HCL (10 MG/1 ML) INJ IV PRN (21:00)
[2017-02-15] MEDS ORDERED: TRIMETHOBENZAMIDE 100 MG/ML VIAL IM PRN (21:00)
[2017-02-15] MEDS ORDERED: ONDANSETRON 4 MG INJ IV PRN (21:00)
[2017-02-15] MEDS ORDERED: morphine 4 MG/ML VIAL IV PRN (21:00)
[2017-02-15] MEDS ORDERED: NALOXONE (0.4 MG/ML) INJ IV PRN (21:00)
[2017-02-15] MEDS ORDERED: MAGNESIUM SULFATE 20 GM/500 ML 500 ML IV SCH (23:46)
[2017-02-15] MEDS ORDERED: LACTATED RINGER'S 1,000 ML IV SCH (23:46)
[2017-02-16] VITALS (19 sets, daily range): BP systolic 111–143; BP diastolic 62–86; PULSE 60–86; RESP 16–20
[2017-02-16] MEDS ORDERED: CARBOPROST 250 MCG INJ IM PRN
[2017-02-16] MEDS ORDERED: MISOPROSTOL 200 MCG TAB PR PRN
[2017-02-16] MEDS ORDERED: OXYTOCIN 30 UNITS/LR 500 ML IV PRN
[2017-02-16] MEDS ORDERED: LANOLIN 7 GM TUBE TOP PRN
[2017-02-16] MEDS ORDERED: METHYLERGONOVINE 0.2 MG INJ IM PRN
[2017-02-16] MEDS ORDERED: KETOROLAC 30 MG INJ IV PRN ×2 (00:30→16:11)
[2017-02-16 01:32] LABS: ALBUMIN 3.3 g/dl (3.3-4.9); BILIRUBIN,INDIRECT 0.3 mg/dl (0-1.1); BILIRUBIN,TOTAL 0.3 mg/dl (0.2-1.3)
[2017-02-16 01:33] LABS: ALBUMIN 3.4 g/dl (3.3-4.9); CALCIUM 7.4 mg/dl (8.4-10.2); CREATININE 0.61 mg/dl (0.44-1.00); PHOSPHORUS 3.6 mg/dl (2.5-4.9); POTASSIUM 4.4 mmol/L (3.5-5.1)
[2017-02-16 02:04] LABS: FIBRIN SPLIT PRODUCT <10 ug/ml (<10)
[2017-02-16] MEDS: morphine 2 MG INJ IV PRN ×2 (02:33→05:44)
[2017-02-16] MEDS: MAGNESIUM SULFATE 20 GM/500 ML 500 ML IV SCH ×2 (06:30→19:50)
[2017-02-16 07:58] LABS: ADD SCAN DIFF NO
[2017-02-16] MEDS: SOD CHLORIDE 0.9% 1,000 ML IV SCH ×4 (08:11→19:46)
[2017-02-16 08:15] LABS: BASOPHILS % 0.1 % (0.0-2.0); EOSINOPHILS % 0.1 % (0.0-7.0); HEMATOCRIT 36.1 % (37.0-47.0); HEMOGLOBIN 12.4 g/dl (12.0-16.0); LYMPHOCYTES # 1.6 10^3/ul (0.8-2.9); LYMPHOCYTES % 8.8 % (15.0-51.0); MEAN CORPUSCULAR HEMOGLOBIN 31.1 pg (29.0-33.0); MEAN CORPUSCULAR HGB CONC 34.3 g/dl (32.0-37.0); MEAN CORPUSCULAR VOLUME 90.5 fl (82.0-101.0); MEAN PLATELET VOLUME 11.7 fl (7.4-10.4); MONOCYTES % 5.6 % (0.0-11.0); NEUTROPHIL # 15.5 10^3/ul (1.6-7.5); NEUTROPHILS % 84.9 % (39.0-77.0); PLATELET COUNT 216 10^3/UL (140-415); RED BLOOD COUNT 3.99 10^6/ul (4.20-5.40); RED CELL DISTRIBUTION WIDTH 14.6 % (11.5-14.5); WHITE BLOOD COUNT 18.2 10^3/ul (4.8-10.8)
[2017-02-16 08:33] LABS: HAAIG REFLEX REFLEX FILED
[2017-02-16 08:44] LABS: ALBUMIN 3.4 g/dl (3.3-4.9); BILIRUBIN,INDIRECT 0.2 mg/dl (0-1.1); BILIRUBIN,TOTAL 0.2 mg/dl (0.2-1.3); TOTAL PROTEIN 6.2 g/dl (6.1-8.1)
[2017-02-16 08:46] LABS: ALBUMIN 3.4 g/dl (3.3-4.9); ALBUMIN/GLOBULIN RATIO 1.21; BILIRUBIN,INDIRECT 0.2 mg/dl (0-1.1); BILIRUBIN,TOTAL 0.2 mg/dl (0.2-1.3); CALCIUM 6.5 mg/dl (8.4-10.2); CREATININE 0.63 mg/dl (0.44-1.00); POTASSIUM 4.5 mmol/L (3.5-5.1); TOTAL PROTEIN 6.2 g/dl (6.1-8.1)
[2017-02-16] MEDS: SENNA/DOCUSATE NA (8.6MG/50MG) TAB PO SCH ×2 (09:00→20:47)
[2017-02-16] MEDS: CEFAZOLIN 2 GM/50 ML (PMX) 50 ML IVPB SCH ×3 (09:15→21:16)
[2017-02-16 09:32] LABS: HEPATITIS B CORE ANTIBODY NEGATIVE (NEGATIVE)
[2017-02-16 12:01] LABS: ADD SCAN DIFF NO
[2017-02-16 12:05] LABS: BASOPHILS % 0.1 % (0.0-2.0); EOSINOPHILS % 0.1 % (0.0-7.0); HEMATOCRIT 35.2 % (37.0-47.0); LYMPHOCYTES # 2.1 10^3/ul (0.8-2.9); LYMPHOCYTES % 12.3 % (15.0-51.0); MEAN CORPUSCULAR HEMOGLOBIN 30.9 pg (29.0-33.0); MEAN CORPUSCULAR HGB CONC 34.1 g/dl (32.0-37.0); MEAN CORPUSCULAR VOLUME 90.7 fl (82.0-101.0); MEAN PLATELET VOLUME 11.4 fl (7.4-10.4); MONOCYTE # 1.2 10^3/ul (0.3-0.9); NEUTROPHIL # 13.6 10^3/ul (1.6-7.5); NEUTROPHILS % 79.4 % (39.0-77.0); PLATELET COUNT 204 10^3/UL (140-415); RED BLOOD COUNT 3.88 10^6/ul (4.20-5.40); RED CELL DISTRIBUTION WIDTH 14.7 % (11.5-14.5); WHITE BLOOD COUNT 17.1 10^3/ul (4.8-10.8)
[2017-02-16 12:23] LABS: ALBUMIN/GLOBULIN RATIO 1.25; BILIRUBIN,INDIRECT 0.1 mg/dl (0-1.1); BILIRUBIN,TOTAL 0.1 mg/dl (0.2-1.3); CALCIUM 6.6 mg/dl (8.4-10.2); CREATININE 0.55 mg/dl (0.44-1.00); POTASSIUM 4.4 mmol/L (3.5-5.1); TOTAL PROTEIN 5.4 g/dl (6.1-8.1)
[2017-02-16 12:25] LABS: ALBUMIN 3.2 g/dl (3.3-4.9); BILIRUBIN,INDIRECT 0.1 mg/dl (0-1.1); BILIRUBIN,TOTAL 0.1 mg/dl (0.2-1.3)
--- NOTE | 2017-02-16 13:31 | CONS ---
Date/Time of Note Date/Time of Note DATE: 02/16/17 TIME: 13:22 Assessment/Plan Assessment/Plan Chief Complaint/Hosp Course A/P: 31 F with elevated LFT's, s/p C sec POD # 1 1. abd pain/elevated LFT's - unclear source. Per surgery input 2 days ago: Unclear etiology of abdominal pain. Appendicitis is very unlikely based on MRI findings as well as the fact the symptoms have been going on for 2 week. Doubt gallbladder as well as patient is no evidence of cholecystitis on ultrasound. Pt 's bilirubin's are nL. Hep panel is nL. DDx = preecclampsia (apparently per nursing pt had elevated bp prior to admission, bp nL now, and + proteinuria), EtOH liver ds, although less likely - will mainly defer to our GI colleagues about reason for elevated LFT's, including their w/u. - Will check EToH level just to r/o alcohol as cause. 2. s/p C section - post delivery care per primary [facility] team. Will continue to follow. Problems: Consultation Date/Type/Reason Admit Date/Time February 14, 2017 High risk hospital consult Reason for Consultation elevated LFT's Hx of Present Illness The patient is a 32-year-old female who was 32 weeks on admission, now s/p POD # 1. She has been complaining of a two-week history of abdominal pain, mostly localized to right upper quadrant as well as right flank back pain. Presently she denies nausea (although she had some this AM) or vomiting. She denies fevers, chills or night sweats. She was hospitalized at [facility] for 4 days and was discharged home recently. Hospitalist team asked for consult about continued elevated LFT's (although GI consult also obtained, which is pending). Constitutional: No chills, No diaphoresis, No disoriented, No febrile, No improved, No no complaints, No other, No poor po, No requiring IVF, No requiring O2 Psychological: no complaints Past Medical History Medical History: no pertinent history Past Surgical History Past Surgical Hx: no surgical history Social History Alcohol Use: none Smoking Status: Never smoker Drug Use: none Exam/Review of Systems Vital Signs Vitals Vital Signs Date Time Temp Pulse Resp B/P Pulse Ox O2 Delivery O2 Flow Rate FiO2 02/16/17 10:15 73 16 130/71 Room Air 02/16/17 08:15 98.0 02/16/17 04:33 95 21 Intake and Output 02/15/17 02/15/17 02/16/17 15:00 23:00 07:00 Intake Total 858 ml 1113 ml 915 ml Output Total 500 ml 850 ml 850 ml Balance 358 ml 263 ml 65 ml Exam Gen: lying in bed, NAD HEENT - PERRL, EOMI Neck - supple Res - CTA b/l CV - S1S2 heard, no rubs Abd: ND, CDI, no R or G M/S: no LE edema Neuro: no focal deficits Results Result Diagram: 02/16/17 1150 02/16/17 1150 Results 24 hrs Laboratory Tests Test 02/15/17 18:25 02/16/17 00:30 02/16/17 07:16 02/16/17 09:15 Magnesium Level 5.6 *H 6.9 *H 6.0 *H Total Bilirubin 0.3 0.3 0.2 Direct Bilirubin 0.00 0.00 0.00 Indirect Bilirubin 0.3 0.3 0.2 Aspartate Amino Transf (AST/SGOT) 266 H 297 H 237 H Alanine Aminotransferase (ALT/SGPT) 161 H 180 H 149 H Alkaline Phosphatase 185 H 195 H 176 H Total Protein 5.9 L 6.0 L 6.2 Albumin 3.4 3.3 3.4 Fibrinogen 616.0 H Plasma Fibrin Degradation Products <10 Sodium Level 130 L 129 L Potassium Level 4.4 4.5 Chloride Level 93 L 96 L Carbon Dioxide Level 23 26 Anion Gap 18 H 12 Blood Urea Nitrogen 5 L 5 L Creatinine 0.61 0.63 Glucose Level 100 108 Calcium Level 7.4 L 6.5 L Phosphorus Level 3.6 Lactate Dehydrogenase 1330 H White Blood Count 18.2 #H Red Blood Count 3.99 L Hemoglobin 12.4 Hematocrit 36.1 L Mean Corpuscular Volume 90.5 Mean Corpuscular Hemoglobin 31.1 Mean Corpuscular Hemoglobin Concent 34.3 Red Cell Distribution Width 14.6 H Platelet Count 216 Mean Platelet Volume 11.7 H Neutrophils % 84.9 H Lymphocytes % 8.8 L Monocytes % 5.6 Eosinophils % 0.1 Basophils % 0.1 Nucleated Red Blood Cells % 0.0 Neutrophils # 15.5 H Lymphocytes # 1.6 Monocytes # 1.0 H Eosinophils # 0.0 Basophils # 0.0 Nucleated Red Blood Cells # 0.0 Globulin 2.80 Albumin/Globulin Ratio 1.21 Hepatitis B Surface Antigen NEGATIVE Hepatitis B Core Total Antibody NEGATIVE Hepatitis C Antibody NEGATIVE Urine Collection Duration 24 Urine Total Volume (Protein) 3500 Urine Total Protein 24 Hour Test 02/16/17 11:50 White Blood Count 17.1 H Red Blood Count 3.88 L Hemoglobin 12.0 Hematocrit 35.2 L Mean Corpuscular Volume 90.7 Mean Corpuscular Hemoglobin 30.9 Mean Corpuscular Hemoglobin Concent 34.1 Red Cell Distribution Width 14.7 H Platelet Count 204 Mean Platelet Volume 11.4 H Neutrophils % 79.4 H Lymphocytes % 12.3 L Monocytes % 7.0 Eosinophils % 0.1 Basophils % 0.1 Nucleated Red Blood Cells % 0.0 Neutrophils # 13.6 H Lymphocytes # 2.1 Monocytes # 1.2 H Eosinophils # 0.0 Basophils # 0.0 Nucleated Red Blood Cells # 0.0 Sodium Level 131 L Potassium Level 4.4 Chloride Level 94 L Carbon Dioxide Level 26 Anion Gap 15 Blood Urea Nitrogen 5 L Creatinine 0.55 Glucose Level 89 Calcium Level 6.6 L Magnesium Level 6.1 *H Total Bilirubin 0.1 L Direct Bilirubin 0.00 Indirect Bilirubin 0.1 Aspartate Amino Transf (AST/SGOT) 225 H Alanine Aminotransferase (ALT/SGPT) 152 H Alkaline Phosphatase 168 H Total Protein 5.4 L Albumin 3.0 L Globulin 2.40 Albumin/Globulin Ratio 1.25 Medications Medications Current Medications Morphine Sulfate (morphine) 2 mg Q2H PRN IV PAIN LEVEL 1-5 Last administered on 02/16/17 05:44; Admin Dose 2 MG; Start 02/15/17 at 21:00; Stop 02/16/17 at 20: 17 Morphine Sulfate (morphine) 4 mg Q2H PRN IV PAIN LEVEL 6-10; Start 02/15/17 at 21:00; Stop 02/16/17 at 20:17 Diphenhydramine HCl (Benadryl) 25 mg Q4H PRN IV PRURITUS Last administered on 22:43; Admin Dose 25 MG; Start 02/15/17 at 21:00; Stop 02/16/17 at 20:17 Nalbuphine HCl (Nubain) 10 mg Q4H PRN IV PRURITUS; Start 02/15/17 at 21:00; Stop 02/16/17 at 20:17 Ondansetron HCl (Zofran Inj) 4 mg Q6H PRN IV NAUSEA AND/OR VOMITING Last administered on 02/16/17 08:10; Admin Dose 4 MG; Start 02/15/17 at 21:00; Stop at 20:17 Naloxone HCl (Narcan) 0.2 mg Q2M PRN IV FOR RESP RATE 8 OR LESS; Start 02/15/17 at 21:00; Stop 02/16/17 at 20:17 Senna/Docusate Sodium 1 tab 1 tab BID PO ; Start 02/16/17 at 09:00 Oxytocin/Lactated Ringer's 500 ml @ 0 mls/hr ONCE PRN IV For Hemorrhage Management; Start 02/16/17 at 00:00 Methylergonovine Maleate (Methergine) 0.2 mg ONCE PRN IM VAGINAL BLEEDING; Start 02/16/17 at 00:00 Carboprost Tromethamine (Hemabate) 250 mcg ONCE PRN IM VAGINAL BLEEDING; Start 02/16/17 at 00:00 Misoprostol (Cytotec) 1,000 mcg ONCE PRN [place] VAGINAL BLEEDING; Start 02/16/17 at 00:00 Ketorolac Tromethamine 30 mg 30 mg Q6H PRN IV PAIN; Start 02/16/17 at 20:18; Stop 02/19/17 at 20:17 Magnesium Sulfate 500 ml @ 37.5 mls/hr [id number] IV ; Start 02/16/17 at 06:30 Sodium Chloride 1,000 ml @ 125 mls/hr Q8H IV Last administered on 02/16/17 08: 11; Admin Dose 125 MLS/HR; Start 02/16/17 at 08:00 Cefazolin Sodium/ Dextrose (Ancef 2 Gm/50 ml (Pmx)) 50 ml @ 100 mls/hr Q8 IVPB Last administered on 02/16/17 09:15; Admin Dose 100 MLS/HR; Start 02/16/17 at 09:01 IVETTE MANNING Feb 16, 2017 13:31
--- NOTE | 2017-02-16 13:38 | QN ---
Documentation Comment patient seen and evaluated no complaints reports improved of pain since surgery vs stable ab soft nt no distention extremity plus 1 b/l pitting edema labs liver enzymes elevated a/ sp cd POD 1 currently on mg secondary to preeclampsia p/ f/u with medicine and gi TALAT BRISCOE MD Feb 16, 2017 13:38
--- NOTE | 2017-02-16 16:30 | CONS ---
Date/Time of Note Date/Time of Note DATE: 02/16/17 TIME: 16:11 Assessment/Plan Assessment/Plan Additional Assessment/Plan Assessment * S/P section 02/15/2017 * Transaminitis R/O fatty liver in vs preeclampsia vs infectious vs others Plan * trend liver enzymes * continue present management * request for hepatitis profile * Case discussed with DR Balbuena and Dr Ferrer * Further orders will depend on clinical course Consultation Date/Type/Reason Admit Date/Time February 14, 2017 High risk hospital consult Date of Consultation: Feb 16, 2017 Type of Consultation: gastroenterology Reason for Consultation elevated liver enzymes Referring Provider: TALAT BRISCOE MD Hx of Present Illness 31 year old female primigravid female referred to us for evaluation of elevated liver enzymes.Present condition apparently after discharge from our hospital when she complained of nausea ,vomiting and right sided abdominal pain, Previous MRI 1. Nonvisualization of the appendix, but without secondary findings to suggest acute appendicitis. Single intrauterine .. Mild right hydroureteronephrosis, unchanged when compared the recent abdominal ultrasound, given the difference in technique. Laboratory showed elevated transaminase but presently trending downward with AST 241,ALT 148.alkaline phosphatase 175 ,WBC 17.1 Hgb 12 platelet 204 PT 11.1 and INR 0.8.Patient had csection last night,presently patient denies any right sided abdominal pain nor nausea or vomiting Constitutional: no complaints, No diaphoresis, No disoriented, No febrile, No other, No poor po, No requiring IVF, No requiring O2 Eyes: no complaints ENT: no complaints Respiratory: no complaints Cardiovascular: no complaints Gastrointestinal: pain Genitourinary: no complaints Musculoskeletal: no complaints Skin: no complaints Neurologic: no complaints Endocrine: no complaints Lymphatic: no complaints Psychological: no complaints Immunologic: no complaints Past Medical History Medical History: no pertinent history Past Surgical History Past Surgical Hx: no surgical history Social History Alcohol Use: none Smoking Status: Never smoker Drug Use: none Exam/Review of Systems Vital Signs Vitals Vital Signs Date Time Temp Pulse Resp B/P Pulse Ox O2 Delivery O2 Flow Rate FiO2 02/16/17 14:15 60 17 121/67 Room Air 02/16/17 12:15 98.1 02/16/17 04:33 95 21 Intake and Output 02/15/17 02/15/17 02/16/17 15:00 23:00 07:00 Intake Total 858 ml 1113 ml 915 ml Output Total 500 ml 850 ml 850 ml Balance 358 ml 263 ml 65 ml Exam Constitutional: alert, oriented Psych: nl mood/affect Head: atraumatic, normocephalic Eyes: nl conjunctiva ENMT: nl external ears & nose Neck: non-tender, supple Respiratory: clear to auscultation, normal air movement Cardiovascular: regular rate and rhythm Gastrointestinal: distended, non-tender, soft Musculoskeletal: nl extremities to inspection, nl gait and stance Extremities: normal pulses Neurological: nl speech, nl strength Skin: nl turgor, No rash or lesions Lymph: nl lymph nodes Results Result Diagram: 02/16/17 1150 02/16/17 1150 Results 24 hrs Laboratory Tests Test 02/15/17 18:25 02/16/17 00:30 02/16/17 07:16 02/16/17 09:15 Magnesium Level 5.6 *H 6.9 *H 6.0 *H Total Bilirubin 0.3 0.3 0.2 Direct Bilirubin 0.00 0.00 0.00 Indirect Bilirubin 0.3 0.3 0.2 Aspartate Amino Transf (AST/SGOT) 266 H 297 H 237 H Alanine Aminotransferase (ALT/SGPT) 161 H 180 H 149 H Alkaline Phosphatase 185 H 195 H 176 H Total Protein 5.9 L 6.0 L 6.2 Albumin 3.4 3.3 3.4 Fibrinogen 616.0 H Plasma Fibrin Degradation Products <10 Sodium Level 130 L 129 L Potassium Level 4.4 4.5 Chloride Level 93 L 96 L Carbon Dioxide Level 23 26 Anion Gap 18 H 12 Blood Urea Nitrogen 5 L 5 L Creatinine 0.61 0.63 Glucose Level 100 108 Calcium Level 7.4 L 6.5 L Phosphorus Level 3.6 Lactate Dehydrogenase 1330 H White Blood Count 18.2 #H Red Blood Count 3.99 L Hemoglobin 12.4 Hematocrit 36.1 L Mean Corpuscular Volume 90.5 Mean Corpuscular Hemoglobin 31.1 Mean Corpuscular Hemoglobin Concent 34.3 Red Cell Distribution Width 14.6 H Platelet Count 216 Mean Platelet Volume 11.7 H Neutrophils % 84.9 H Lymphocytes % 8.8 L Monocytes % 5.6 Eosinophils % 0.1 Basophils % 0.1 Nucleated Red Blood Cells % 0.0 Neutrophils # 15.5 H Lymphocytes # 1.6 Monocytes # 1.0 H Eosinophils # 0.0 Basophils # 0.0 Nucleated Red Blood Cells # 0.0 Globulin 2.80 Albumin/Globulin Ratio 1.21 Hepatitis B Surface Antigen NEGATIVE Hepatitis B Core Total Antibody NEGATIVE Hepatitis C Antibody NEGATIVE Urine Collection Duration 24 Urine Total Volume (Protein) 3500 Urine Total Protein 24 Hour Test 02/16/17 11:50 02/16/17 14:25 White Blood Count 17.1 H Red Blood Count 3.88 L Hemoglobin 12.0 Hematocrit 35.2 L Mean Corpuscular Volume 90.7 Mean Corpuscular Hemoglobin 30.9 Mean Corpuscular Hemoglobin Concent 34.1 Red Cell Distribution Width 14.7 H Platelet Count 204 Mean Platelet Volume 11.4 H Neutrophils % 79.4 H Lymphocytes % 12.3 L Monocytes % 7.0 Eosinophils % 0.1 Basophils % 0.1 Nucleated Red Blood Cells % 0.0 Neutrophils # 13.6 H Lymphocytes # 2.1 Monocytes # 1.2 H Eosinophils # 0.0 Basophils # 0.0 Nucleated Red Blood Cells # 0.0 Sodium Level 131 L Potassium Level 4.4 Chloride Level 94 L Carbon Dioxide Level 26 Anion Gap 15 Blood Urea Nitrogen 5 L Creatinine 0.55 Glucose Level 89 Calcium Level 6.6 L Magnesium Level 6.1 *H Total Bilirubin 0.1 L Direct Bilirubin 0.00 Indirect Bilirubin 0.1 Aspartate Amino Transf (AST/SGOT) 225 H Alanine Aminotransferase (ALT/SGPT) 152 H Alkaline Phosphatase 168 H Total Protein 5.4 L Albumin 3.0 L Globulin 2.40 Albumin/Globulin Ratio 1.25 Ethyl Alcohol Level < 10.0 Medications Medications Current Medications Morphine Sulfate (morphine) 2 mg Q2H PRN IV PAIN LEVEL 1-5 Last administered on 02/16/17 05:44; Admin Dose 2 MG; Start 02/15/17 at 21:00; Stop 02/16/17 at 20: 17 Morphine Sulfate (morphine) 4 mg Q2H PRN IV PAIN LEVEL 6-10; Start 02/15/17 at 21:00; Stop 02/16/17 at 20:17 Diphenhydramine HCl (Benadryl) 25 mg Q4H PRN IV PRURITUS Last administered on 22:43; Admin Dose 25 MG; Start 02/15/17 at 21:00; Stop 02/16/17 at 20:17 Nalbuphine HCl (Nubain) 10 mg Q4H PRN IV PRURITUS; Start 02/15/17 at 21:00; Stop 02/16/17 at 20:17 Ondansetron HCl (Zofran Inj) 4 mg Q6H PRN IV NAUSEA AND/OR VOMITING Last administered on 02/16/17 08:10; Admin Dose 4 MG; Start 02/15/17 at 21:00; Stop at 20:17 Naloxone HCl (Narcan) 0.2 mg Q2M PRN IV FOR RESP RATE 8 OR LESS; Start 02/15/17 at 21:00; Stop 02/16/17 at 20:17 Senna/Docusate Sodium 1 tab 1 tab BID PO ; Start 02/16/17 at 09:00 Oxytocin/Lactated Ringer's 500 ml @ 0 mls/hr ONCE PRN IV For Hemorrhage Management; Start 02/16/17 at 00:00 Methylergonovine Maleate (Methergine) 0.2 mg ONCE PRN IM VAGINAL BLEEDING; Start 02/16/17 at 00:00 Carboprost Tromethamine (Hemabate) 250 mcg ONCE PRN IM VAGINAL BLEEDING; Start 02/16/17 at 00:00 Misoprostol (Cytotec) 1,000 mcg ONCE PRN [place] VAGINAL BLEEDING; Start 02/16/17 at 00:00 Ketorolac Tromethamine 30 mg 30 mg Q6H PRN IV PAIN; Start 02/16/17 at 20:18; Stop 02/19/17 at 20:17 Magnesium Sulfate 500 ml @ 37.5 mls/hr [id number] IV ; Start 02/16/17 at 06:30 Sodium Chloride 1,000 ml @ 125 mls/hr Q8H IV Last administered on 02/16/17 08: 11; Admin Dose 125 MLS/HR; Start 02/16/17 at 08:00 Cefazolin Sodium/ Dextrose (Ancef 2 Gm/50 ml (Pmx)) 50 ml @ 100 mls/hr Q8 IVPB Last administered on 02/16/17 09:15; Admin Dose 100 MLS/HR; Start 02/16/17 at 09:01 CHIVO SPEARS NP Feb 16, 2017 16:22
--- NOTE | 2017-02-16 18:17 | OPR ---
Operative Report Planned Procedure Free Text/Dictation DATE OF OPERATION: 02/15/2017 PREOPERATIVE DIAGNOSIS: Intrauterine at 33 weeks gestational age, preeclampsia with severe features POSTOPERATIVE DIAGNOSIS: Same. OPERATION PERFORMED: Primary low transverse delivery SURGEON: Talat Briscoe MD. STATE DIRECTOR: Dr. Macario ANESTHESIA: Spinal. COMPLICATIONS OF PROCEDURE: None. ESTIMATED BLOOD LOSS: 500 mL. FINDINGS: A viable male, 9and 9 respectively at 1 and 5 minutes. Weight 1,575 grams . Pathology: placenta DESCRIPTION OF PROCEDURE: After explaining the risks, benefits and alternatives , the patient and consent signed in chart, the patient was taken to the operating room where spinal anesthesia was found to be adequate. She was then prepared and draped in normal sterile fashion in dorsal supine position with a leftward tilt. A Pfannenstiel skin incision was then made with a scalpel and carried to the underlying layer of fascia. The fascia was incised in the midline and incision was extended laterally with Tavarez scissors. The superior aspect of the fascial incision was grasped with curved clamps, elevated and the underlying rectus muscles dissected off bluntly. Attention was then turned to the inferior aspect of the incision, which in similar fashion was grasped, tented up with curved clamps and the rectus muscles dissected off bluntly. The rectus muscles were then in midline, peritoneum identified, tented up with Metzenbaum scissors. The peritoneal incision was extended superiorly, inferiorly with good visualization of bladder. . At this point, the bladder blade was then inserted and the vesicouterine peritoneum identified, grasped with pickups and entered sharply with Metzenbaum scissors. This incision was extended laterally and the bladder flap created digitally. The bladder blade was then reinserted and was incised in transverse fashion with a scalpel. The uterine incision was extended laterally. The bladder blade was removed and the infant's head delivered atraumatically. The nose and mouth were suctioned and cord clamped and cut. The was handed off to awaiting anchor tacker. The placenta was then removed. The uterus was exteriorized and cleared of all clots and debris. The uterine incision was repaired with 1-0 chromic in a running locked fashion. A second layer of same suture was used for imbrication obtaining excellent hemostasis. The uterus was returned to the abdomen. The gutters were cleared of all clots. Good hemostasis was assured from the tubal ligation site. The peritoneum was reapproximated with 2-0 plain gut in interrupted fashion. The fascia was reapproximated with 0 Vicryl in a running fashion. The subcutaneous tissue was reapproximated with 2-0 plain gut in a running fashion. The skin was closed with deepa. The patient tolerated procedure well. Sponge, lap and needle counts correct x2. The patient was taken to recovery room in stable condition. Procedure date Feb 15, 2017 Procedure Description Under satisfactory [] anesthesia, the patient was prepped and draped and placed in a supine position, tilted to the left. Pfannenstiel incision was made, carried through the subcutaneous tissue. Bleeders brought under control with electrocautery. Fascia incised to the length of the incision. Rectus muscles from the fascia, divided midline. Peritoneum exposed, entered through a transverse incision. Exploration of abdomen revealed gravid uterus. Bladder flap was developed. Transverse incision was made in the lower segment of the uterus. Amniotic sac ruptured. [] amniotic fluid noted. [] Nasal oropharyngeal suction was performed. The baby was handed to the team for immediate attention. The placenta was delivered manually intact. Uterine cavity was cleaned with wet sponge and drainage established. Uterus closed in 2 layers using [] in continuous fashion. Peritoneal cavity irrigated with warm saline. Sponge, needle and instrument count reported to be correct. Abdominal peritoneum closed with [] continuously. Rectus muscle approximated with []. Fascia closed with [], and skin closed with deepa. Estimated blood loss []mL. Urine bag contained []mL of urine Post-Procedure Findings: Live Baby [], Apgars [] and [], weight [], position [], [] presentation []cord. Physician Certification I, the undersigned physician, hereby certify that I have discussed the procedure described in this consent form with this patient (or the patient's legal sales representative electric service), including: * The risk and benefits of the procedure; * Any adverse reactions that may reasonably be expected to occur; * Any alternative efficacious methods of treatment which may be medically viable ; * The potential problems that may occur during recuperation; * Potential for blood transfusion and associated risks/benefits; and * Any research or economic interest I may have regarding this treatment. I further certify that the patient/legally responsible person was encouraged to ask question and that all questions were answered. TALAT BRISCOE MD 6, 2017 18:16
[2017-02-16 18:42] LABS: ALBUMIN 3.1 g/dl (3.3-4.9); ALBUMIN/GLOBULIN RATIO 1.06; CALCIUM 6.6 mg/dl (8.4-10.2); CREATININE 0.51 mg/dl (0.44-1.00); POTASSIUM 3.8 mmol/L (3.5-5.1)
[2017-02-16 18:43] LABS: ALBUMIN 3.1 g/dl (3.3-4.9); BILIRUBIN,INDIRECT 0.1 mg/dl (0-1.1); BILIRUBIN,TOTAL 0.1 mg/dl (0.2-1.3); TOTAL PROTEIN 5.9 g/dl (6.1-8.1)
[2017-02-16] MEDS: DIPHENHYDRAMINE 50 MG INJ IV PRN (20:35)
[2017-02-16] MEDS: OXYCODONE/ACETAMINOPHEN (5/325) TAB PO PRN (23:56)
[2017-02-17] VITALS: BP 126/60; PULSE 70; RESP 18
[2017-02-17] MEDS: IBUPROFEN 600 MG TAB PO PRN ×2 (03:29→23:29)
[2017-02-17 03:33] VITALS: BP 126/60; PULSE 62; RESP 20
[2017-02-17] MEDS: CEFAZOLIN 2 GM/50 ML (PMX) 50 ML IVPB SCH ×3 (06:11→21:21)
--- NOTE | 2017-02-17 06:19 | QN ---
Documentation Comment patient seen and evaluated no complaints reports improved of pain since surgery vs stable ab soft nt no distention no epigastric pain dressing clean extremity edema no calf tenderness labs pending a/ sp cd POD 2 stable afebrile p/ f/u with labs TALAT BRISCOE MD Feb 17, 2017 06:19
[2017-02-17 07:03] LABS: ADD SCAN DIFF NO
[2017-02-17 07:08] LABS: BASOPHILS % 0.2 % (0.0-2.0); EOSINOPHILS # 0.1 10^3/ul (0.0-0.5); EOSINOPHILS % 0.9 % (0.0-7.0); HEMATOCRIT 34.6 % (37.0-47.0); HEMOGLOBIN 11.7 g/dl (12.0-16.0); LYMPHOCYTES % 22.5 % (15.0-51.0); MEAN CORPUSCULAR HEMOGLOBIN 30.8 pg (29.0-33.0); MEAN CORPUSCULAR HGB CONC 33.8 g/dl (32.0-37.0); MEAN CORPUSCULAR VOLUME 91.1 fl (82.0-101.0); MEAN PLATELET VOLUME 11.3 fl (7.4-10.4); MONOCYTE # 0.9 10^3/ul (0.3-0.9); MONOCYTES % 6.6 % (0.0-11.0); NEUTROPHIL # 9.2 10^3/ul (1.6-7.5); NEUTROPHILS % 69.3 % (39.0-77.0); PLATELET COUNT 202 10^3/UL (140-415); RED CELL DISTRIBUTION WIDTH 14.9 % (11.5-14.5); WHITE BLOOD COUNT 13.3 10^3/ul (4.8-10.8)
[2017-02-17 07:32] LABS: ALBUMIN/GLOBULIN RATIO 1.07; BILIRUBIN,INDIRECT 0.1 mg/dl (0-1.1); BILIRUBIN,TOTAL 0.1 mg/dl (0.2-1.3); CALCIUM 7.2 mg/dl (8.4-10.2); CREATININE 0.54 mg/dl (0.44-1.00); POTASSIUM 3.7 mmol/L (3.5-5.1); TOTAL PROTEIN 5.8 g/dl (6.1-8.1)
[2017-02-17 07:33] LABS: ALANINE AMINOTRANSFERASE 124 IU/L (13-69); ALKALINE PHOSPHATASE 147 IU/L (42-121); ASPARTATE AMINO TRANSFERASE 164 IU/L (15-46)
[2017-02-17 08:10] VITALS: BP 117/71; PULSE 76; RESP 20
[2017-02-17] MEDS: OXYCODONE/ACETAMINOPHEN (5/325) TAB PO PRN ×3 (11:52→21:21)
[2017-02-17] MEDS: SENNA/DOCUSATE NA (8.6MG/50MG) TAB PO SCH ×2 (11:52→21:21)
[2017-02-17 12:37] VITALS: BP 95/50; PULSE 77; RESP 20
--- NOTE | 2017-02-17 15:00 | PN ---
Date/Time of Note Date/Time of Note DATE: 02/17/17 TIME: 14:53 Assessment/Plan VTE Prophylaxis VTE Prophylaxis Intervention: ambulation Lines/Catheters [facility] Assessment/Plan Chief Complaint/Hosp Course Problems: Assessment/Plan Assessment * S/P section 02/15/2017 * Transaminitis R/O fatty liver in vs preeclampsia vs infectious vs others Plan * trend liver enzymes * continue present management * will await ARPITA,Smooth muscle antibody results * Case discussed with DR Balbuena and Dr Ferrer * Further orders will depend on clinical course Subjective 24 Hr Interval Summary Free Text/Dictation * Course reviewed * No untoward events overnight * mild right sided abdominal pain Exam/Review of Systems Vital Signs Vitals Vital Signs Date Time Temp Pulse Resp B/P Pulse Ox O2 Delivery O2 Flow Rate FiO2 02/17/17 14:47 98 21 02/17/17 12:37 98.9 77 20 95/50 02/17/17 08:10 Room Air Intake and Output 02/16/17 02/16/17 02/17/17 15:00 23:00 07:00 Intake Total 1337.5 ml 625 ml Output Total 1050 ml 3300 ml 800 ml Balance 287.5 ml -2675 ml -800 ml Exam Constitutional: alert, oriented Head: atraumatic, normocephalic Eyes: nl conjunctiva Neck: non-tender, supple Respiratory: clear to auscultation, normal air movement Cardiovascular: nl pulses, regular rate and rhythm Gastrointestinal: nl liver, spleen, non-tender, soft Musculoskeletal: nl extremities to inspection, nl gait and stance Extremities: normal pulses Neurological: nl speech, nl strength Skin: nl turgor Lymph: nl lymph nodes Results Result Diagram: 02/17/17 0635 02/17/17 0625 Results 24 hrs Laboratory Tests Test 02/16/17 17:57 02/17/17 06:25 02/17/17 06:35 Sodium Level 132 L 137 Potassium Level 3.8 3.7 Chloride Level 94 L 98 Carbon Dioxide Level 30 29 Anion Gap 12 14 Blood Urea Nitrogen 5 L 5 L Creatinine 0.51 0.54 Glucose Level 103 80 Calcium Level 6.6 L 7.2 L Magnesium Level 5.3 *H Total Bilirubin 0.0 L 0.1 L Direct Bilirubin 0.00 0.00 Indirect Bilirubin 0.0 0.1 Aspartate Amino Transf (AST/SGOT) 208 H 165 H Alanine Aminotransferase (ALT/SGPT) 140 H 121 H Alkaline Phosphatase 163 H 153 H Total Protein 6.0 L 5.8 L Albumin 3.1 L 3.0 L Globulin 2.90 2.80 Albumin/Globulin Ratio 1.06 1.07 Hepatitis C Antibody NEGATIVE White Blood Count 13.3 #H Red Blood Count 3.80 L Hemoglobin 11.7 L Hematocrit 34.6 L Mean Corpuscular Volume 91.1 Mean Corpuscular Hemoglobin 30.8 Mean Corpuscular Hemoglobin Concent 33.8 Red Cell Distribution Width 14.9 H Platelet Count 202 Mean Platelet Volume 11.3 H Neutrophils % 69.3 Lymphocytes % 22.5 Monocytes % 6.6 Eosinophils % 0.9 Basophils % 0.2 Nucleated Red Blood Cells % 0.0 Neutrophils # 9.2 H Lymphocytes # 3.0 H Monocytes # 0.9 Eosinophils # 0.1 Basophils # 0.0 Nucleated Red Blood Cells # 0.0 Medications Medications Current Medications Senna/Docusate Sodium 1 tab 1 tab BID PO Last administered on 02/17/17 11:52; Admin Dose 1 TAB; Start 02/16/17 at 09:00 Oxytocin/Lactated Ringer's 500 ml @ 0 mls/hr ONCE PRN IV For Hemorrhage Management; Start 02/16/17 at 00:00 Methylergonovine Maleate (Methergine) 0.2 mg ONCE PRN IM VAGINAL BLEEDING; Start 02/16/17 at 00:00 Carboprost Tromethamine (Hemabate) 250 mcg ONCE PRN IM VAGINAL BLEEDING; Start 02/16/17 at 00:00 Misoprostol (Cytotec) 1,000 mcg ONCE PRN [place] VAGINAL BLEEDING; Start 02/16/17 at 00:00 Ketorolac Tromethamine 30 mg 30 mg Q6H PRN IV PAIN Last administered on 16:14; Admin Dose 30 MG; Start 02/16/17 at 16:11; Stop 02/19/17 at 16:10 Sodium Chloride 1,000 ml @ 125 mls/hr Q8H IV Last administered on 02/16/17 19: 46; Admin Dose 125 MLS/HR; Start 02/16/17 at 08:00 Cefazolin Sodium/ Dextrose (Ancef 2 Gm/50 ml (Pmx)) 50 ml @ 100 mls/hr Q8 IVPB Last administered on 02/17/17 14:15; Admin Dose 100 MLS/HR; Start 02/16/17 at 09:01 Simethicone (Mylicon) 160 mg Q8 PRN PO DISTENSION/GAS/BLOATING Last administered on 02/16/17 17:21; Admin Dose 160 MG; Start 02/16/17 at 16:30 Oxycodone/ Acetaminophen (Percocet (5/ 325)) 2 tab Q4H PRN PO PAIN Last administered on 02/17/17 11:52; Admin Dose 2 TAB; Start 02/16/17 at 16:30 Ibuprofen (Motrin) 600 mg Q6H PRN PO BREAKTHROUGH PAIN Last administered on 02/17 03:29; Admin Dose 600 MG; Start 02/16/17 at 16:30 CHIVO SPEARS NP Feb 17, 2017 15:00
[2017-02-17 16:00] VITALS: BP 124/63; PULSE 76; RESP 20
--- NOTE | 2017-02-17 16:09 | CONS ---
Date/Time of Note Date/Time of Note DATE: 02/17/17 TIME: 16:07 Consult Date/Type/Reason Admit Date/Time Feb 13, 2017 at 23:45 Initial Consult Date 02/16/17 Type of Consultation: gastroenterology Ordering Provider: TALAT BRISCOE MD Subjective Per nursing staff, patient complaining of right upper quadrant and flank pain radiating to the back and epigastric area this morning 7 out of 10. Relieved with Percocet. Otherwise no acute events overnight. Seen by GI team yesterday and today. Objective Vital Signs Date Time Temp Pulse Resp B/P Pulse Ox O2 Delivery O2 Flow Rate FiO2 02/17/17 14:47 98 21 02/17/17 12:37 98.9 77 20 95/50 02/17/17 08:10 Room Air Intake and Output 02/16/17 02/16/17 02/17/17 15:00 23:00 07:00 Intake Total 1337.5 ml 625 ml Output Total 1050 ml 3300 ml 800 ml Balance 287.5 ml -2675 ml -800 ml Exam Gen: lying in bed, NAD HEENT - PERRL, EOMI Neck - supple Res - CTA b/l CV - S1S2 heard, no rubs Abd: ND, positive right upper quadrant tenderness, no R or G M/S: no LE edema Neuro: no focal deficits Results/Medications Result Diagram: 02/17/17 0635 02/17/17 0625 Results 24 hrs Laboratory Tests Test 02/16/17 17:57 02/17/17 06:25 02/17/17 06:35 Sodium Level 132 L 137 Potassium Level 3.8 3.7 Chloride Level 94 L 98 Carbon Dioxide Level 30 29 Anion Gap 12 14 Blood Urea Nitrogen 5 L 5 L Creatinine 0.51 0.54 Glucose Level 103 80 Calcium Level 6.6 L 7.2 L Magnesium Level 5.3 *H Total Bilirubin 0.0 L 0.1 L Direct Bilirubin 0.00 0.00 Indirect Bilirubin 0.0 0.1 Aspartate Amino Transf (AST/SGOT) 208 H 165 H Alanine Aminotransferase (ALT/SGPT) 140 H 121 H Alkaline Phosphatase 163 H 153 H Total Protein 6.0 L 5.8 L Albumin 3.1 L 3.0 L Globulin 2.90 2.80 Albumin/Globulin Ratio 1.06 1.07 Hepatitis C Antibody NEGATIVE White Blood Count 13.3 #H Red Blood Count 3.80 L Hemoglobin 11.7 L Hematocrit 34.6 L Mean Corpuscular Volume 91.1 Mean Corpuscular Hemoglobin 30.8 Mean Corpuscular Hemoglobin Concent 33.8 Red Cell Distribution Width 14.9 H Platelet Count 202 Mean Platelet Volume 11.3 H Neutrophils % 69.3 Lymphocytes % 22.5 Monocytes % 6.6 Eosinophils % 0.9 Basophils % 0.2 Nucleated Red Blood Cells % 0.0 Neutrophils # 9.2 H Lymphocytes # 3.0 H Monocytes # 0.9 Eosinophils # 0.1 Basophils # 0.0 Nucleated Red Blood Cells # 0.0 Medications Current Medications Senna/Docusate Sodium 1 tab 1 tab BID PO Last administered on 02/17/17 11:52; Admin Dose 1 TAB; Start 02/16/17 at 09:00 Oxytocin/Lactated Ringer's 500 ml @ 0 mls/hr ONCE PRN IV For Hemorrhage Management; Start 02/16/17 at 00:00 Methylergonovine Maleate (Methergine) 0.2 mg ONCE PRN IM VAGINAL BLEEDING; Start 02/16/17 at 00:00 Carboprost Tromethamine (Hemabate) 250 mcg ONCE PRN IM VAGINAL BLEEDING; Start 02/16/17 at 00:00 Misoprostol (Cytotec) 1,000 mcg ONCE PRN [place] VAGINAL BLEEDING; Start 02/16/17 at 00:00 Ketorolac Tromethamine 30 mg 30 mg Q6H PRN IV PAIN Last administered on 16:14; Admin Dose 30 MG; Start 02/16/17 at 16:11; Stop 02/19/17 at 16:10 Sodium Chloride 1,000 ml @ 125 mls/hr Q8H IV Last administered on 02/16/17 19: 46; Admin Dose 125 MLS/HR; Start 02/16/17 at 08:00 Cefazolin Sodium/ Dextrose (Ancef 2 Gm/50 ml (Pmx)) 50 ml @ 100 mls/hr Q8 IVPB Last administered on 02/17/17 14:15; Admin Dose 100 MLS/HR; Start 02/16/17 at 09:01 Simethicone (Mylicon) 160 mg Q8 PRN PO DISTENSION/GAS/BLOATING Last administered on 02/16/17 17:21; Admin Dose 160 MG; Start 02/16/17 at 16:30 Oxycodone/ Acetaminophen (Percocet (5/ 325)) 2 tab Q4H PRN PO PAIN Last administered on 02/17/17 11:52; Admin Dose 2 TAB; Start 02/16/17 at 16:30 Ibuprofen (Motrin) 600 mg Q6H PRN PO BREAKTHROUGH PAIN Last administered on 02/17 03:29; Admin Dose 600 MG; Start 02/16/17 at 16:30 Assessment/Plan Chief Complaint/Hosp Course A/P: 31 F with elevated LFT's, s/p C sec POD # 2 1. abd pain/elevated LFT's - unclear source. Per surgery input 3 days ago: Unclear etiology of abdominal pain. Appendicitis is very unlikely based on MRI findings as well as the fact the symptoms have been going on for 2 week. Doubt gallbladder as well as patient is no evidence of cholecystitis on ultrasound. Pt 's bilirubin's are nL. Hep panel is nL. DDx = preecclampsia (apparently per nursing pt had elevated bp prior to admission, bp nL now, and + proteinuria), EtOH liver ds, although less likely. Ethanol screen was normal. Interestingly, patient volunteered to nursing staff this morning that she has had history of kidney stones in the past. - will mainly defer to our GI colleagues about reason for elevated LFT's, including their w/u. - Will order for CT scan with noncontrast to rule out kidney stone as possible source of patient's flank pain. 2. s/p C section - post delivery care per primary [employer] team. Will continue to follow. Problems: IVETTE MANNING Feb 17, 2017 16:09
[2017-02-17] MEDS ORDERED: BARIUM SULF 2% 450 ML BTL (BERRY SMOOTHIE) PO ONE (18:00)
--- NOTE | 2017-02-17 18:15 | RADRPT ---
PROCEDURE: CT abdomen and pelvis without IV contrast. CLINICAL INDICATION: Abdominal and right flank pain. state. TECHNIQUE: CT scan of the abdomen and pelvis without contrast was performed on the [employer] volumetric [address] scanner. The patient was scanned without intravenous contrast. Coronal and sagittal refo rmatted images were obtained from the axial source images. The CTDI vol is 16.27 mGy and the DLP is 948.53 mGy-cm. COMPARISON: MRI of the abdomen from 02/11/2017 FINDINGS: CT abdomen: The lung bases are clear. The heart size is not enlarged and is without pericardial thickening or e ffusion. The liver is normal in size and density and is without focal mass or intrahepatic biliary dilatation . The spleen is normal in size and homogeneous in density. The stomach is grossly unremarkable. T he pancreas as visualized is normal. The gallbladder is distended with high-density material in the gallbladder lumen. Pericholecystic edema is seen. The adrenal glands are symmetric and normal. T he kidneys are symmetrically unremarkable as well. No renal calculus or obstructive uropathy or mas s lesion is seen. The aorta is of normal in caliber. There is no retroperitoneal lymphadenopathy. The meño hepatis region is clear. The large bowel is stool-filled. The small and large bowel and mesentery, as visua lized, are otherwise unremarkable. No inflammatory changes in the periappendiceal region is seen. CT pelvis: The uterus is enlarged. Soft tissue air in the anterior abdominal wall is seen including hemorrhage . The pelvic sidewalls and inguinal regions are clear. No pelvic mass, lymphadenopathy, or free fl uid is seen. No acute inflammation is seen. The urinary bladder is within normal limits. The surrounding osseous structures are unremarkable. No osteolytic or osteoblastic lesion is detect ed. IMPRESSION: 1. CT findings consistent with a recent with acute postsurgical changes as described abov e. 2. Distended gallbladder with high-density material which may represent layering gallstones includi ng pericholecystic edema. Further evaluation with right upper quadrant ultrasound is recommended. 3. Enlarged uterus consistent with a recent state. RPTAT: HPNM Curly Delvalle Physician Date Time Electronically viewed and signed by Curly Delvalle Physician on 02/17/2017 18:14 /
[2017-02-17 19:35] VITALS: BP 127/70; PULSE 85; RESP 19
[2017-02-17] MEDS ORDERED: NA PHOSPHATE/BIPHOS 133 ML ENEMA PR ONE (20:30)
[2017-02-18] MEDS: CEFAZOLIN 2 GM/50 ML (PMX) 50 ML IVPB SCH (05:27)
[2017-02-18] MEDS: IBUPROFEN 600 MG TAB PO PRN ×3 (05:28→19:45)
[2017-02-18 05:30] VITALS: BP 111/78; PULSE 77; RESP 17
[2017-02-18 07:44] LABS: ADD SCAN DIFF NO
[2017-02-18 07:50] LABS: BASOPHILS % 0.3 % (0.0-2.0); EOSINOPHILS # 0.2 10^3/ul (0.0-0.5); EOSINOPHILS % 1.3 % (0.0-7.0); HEMATOCRIT 34.1 % (37.0-47.0); HEMOGLOBIN 11.6 g/dl (12.0-16.0); MEAN CORPUSCULAR HEMOGLOBIN 31.8 pg (29.0-33.0); MEAN CORPUSCULAR VOLUME 93.4 fl (82.0-101.0); MONOCYTES % 6.2 % (0.0-11.0); NEUTROPHIL # 11.4 10^3/ul (1.6-7.5); NEUTROPHILS % 72.6 % (39.0-77.0); PLATELET COUNT 202 10^3/UL (140-415); RED BLOOD COUNT 3.65 10^6/ul (4.20-5.40); WHITE BLOOD COUNT 15.7 10^3/ul (4.8-10.8)
[2017-02-18 08:13] LABS: ALBUMIN 3.2 g/dl (3.3-4.9); ALBUMIN/GLOBULIN RATIO 1.18; CALCIUM 8.5 mg/dl (8.4-10.2); CREATININE 0.54 mg/dl (0.44-1.00); TOTAL PROTEIN 5.9 g/dl (6.1-8.1)
[2017-02-18 08:31] VITALS: BP 127/61; PULSE 77; RESP 18
[2017-02-18] MEDS: SENNA/DOCUSATE NA (8.6MG/50MG) TAB PO SCH ×2 (08:47→19:45)
[2017-02-18] MEDS: OXYCODONE/ACETAMINOPHEN (5/325) TAB PO PRN ×2 (10:06→16:36)
--- NOTE | 2017-02-18 11:59 | RADRPT ---
PROCEDURE: US Abdomen (right upper quadrant). CLINICAL INDICATION: Right upper quadrant abdomen pain. TECHNIQUE: Multiple real-time longitudinal and transverse images of the right upper quadrant of [facility] abdomen were acquired utilizing a curved array transducer. Images were reviewed on a high-resoluti on PACS workstation. COMPARISON: CT scan of the abdomen and pelvis dated 02/17/2017. FINDINGS: The liver is normal in size and normal in echogenicity. There is no focal hepatic lesion. Color Doppler and pulsed Doppler sonography demonstrate normal a ntegrade flow in the portal vein. Sludge is present in the gallbladder. The gallbladder is otherwise normal with no stones or wall th ickening. There is no pericholecystic fluid collection. The bile ducts are normal with the common bile duct measuring 3.5 mm in diameter. The visualized portions of the pancreas are unremarkable with obscuration of the tail of the pancrea s. No free fluid is present. The right kidney measures 10.8 x 4.1 cm. There is normal echogenicity of the right kidney. There is no perinephric fluid collection. No hydronephrosis, mass, or calculus is seen. IMPRESSION: 1. Sludge in the gallbladder. No gallstones or evidence of cholecystitis. 2. Otherwise normal right upper quadrant abdomen ultrasound. RPTAT: QQ .Andres Doan MD, MD Date Time Electronically viewed and signed by .Andres Doan MD, on 02/18/2017 11:59 .R/
--- NOTE | 2017-02-18 12:21 | PN ---
Date/Time of Note Date/Time of Note DATE: 02/18/17 TIME: 12:08 Assessment/Plan VTE Prophylaxis VTE Prophylaxis Intervention: ambulation Lines/Catheters IV Catheter Type (from Nrs): Peripheral IV Assessment/Plan Chief Complaint/Hosp Course Problems: Assessment/Plan Assessment * S/P section 02/15/2017 * Transaminitis improving * Gallbladder sludge by ultrasound Plan * Stable for outpatient management * Follow up in [address] [facility] [place] * Case discussed with DR Balbuena Subjective 24 Hr Interval Summary Free Text/Dictation * Course reviewed with RN * Patient seen and examined * Ultrasound of abdomen . Sludge in the gallbladder. No gallstones or evidence of cholecystitis. Otherwise normal right upper quadrant abdomen ultrasound. * transaminase levels improving Exam/Review of Systems Vital Signs Vitals Vital Signs Date Time Temp Pulse Resp B/P Pulse Ox O2 Delivery O2 Flow Rate FiO2 02/18/17 08:31 98.6 77 18 127/61 Room Air 02/17/17 16:56 98 21 Intake and Output 02/17/17 02/17/17 02/18/17 15:00 23:00 07:00 Intake Total 50 ml 50 ml 50 ml Balance 50 ml 50 ml 50 ml Exam Constitutional: alert, oriented Head: normocephalic Eyes: nl conjunctiva ENMT: mucosa pink and moist Neck: non-tender, supple Respiratory: clear to auscultation, normal air movement Cardiovascular: nl pulses, regular rate and rhythm Gastrointestinal: distended, non-tender, soft Musculoskeletal: nl extremities to inspection, nl gait and stance Extremities: normal pulses Neurological: nl speech, nl strength Skin: nl turgor, No rash or lesions Lymph: nl lymph nodes Results Result Diagram: 02/18/1725 02/18/17 0725 Results 24 hrs Laboratory Tests Test 02/18/17 07:25 White Blood Count 15.7 H Red Blood Count 3.65 L Hemoglobin 11.6 L Hematocrit 34.1 L Mean Corpuscular Volume 93.4 Mean Corpuscular Hemoglobin 31.8 Mean Corpuscular Hemoglobin Concent 34.0 Red Cell Distribution Width 15.0 H Platelet Count 202 Mean Platelet Volume 11.0 H Neutrophils % 72.6 Lymphocytes % 19.0 Monocytes % 6.2 Eosinophils % 1.3 Basophils % 0.3 Nucleated Red Blood Cells % 0.0 Neutrophils # 11.4 H Lymphocytes # 3.0 H Monocytes # 1.0 H Eosinophils # 0.2 Basophils # 0.0 Nucleated Red Blood Cells # 0.0 Sodium Level 133 L Potassium Level 4.0 Chloride Level 103 Carbon Dioxide Level 26 Anion Gap 8 Blood Urea Nitrogen 5 L Creatinine 0.54 Glucose Level 78 Calcium Level 8.5 Total Bilirubin 0.0 L Direct Bilirubin 0.00 Indirect Bilirubin 0.0 Aspartate Amino Transf (AST/SGOT) 75 H Alanine Aminotransferase (ALT/SGPT) 84 H Alkaline Phosphatase 127 H Total Protein 5.9 L Albumin 3.2 L Globulin 2.70 Albumin/Globulin Ratio 1.18 Medications Medications Current Medications Senna/Docusate Sodium 1 tab 1 tab BID PO Last administered on 02/17/17 21:21; Admin Dose 1 TAB; Start 02/16/17 at 09:00 Oxytocin/Lactated Ringer's 500 ml @ 0 mls/hr ONCE PRN IV For Hemorrhage Management; Start 02/16/17 at 00:00 Methylergonovine Maleate (Methergine) 0.2 mg ONCE PRN IM VAGINAL BLEEDING; Start 02/16/17 at 00:00 Carboprost Tromethamine (Hemabate) 250 mcg ONCE PRN IM VAGINAL BLEEDING; Start 02/16/17 at 00:00 Misoprostol (Cytotec) 1,000 mcg ONCE PRN [place] VAGINAL BLEEDING; Start 02/16/17 at 00:00 Ketorolac Tromethamine 30 mg 30 mg Q6H PRN IV PAIN Last administered on 16:14; Admin Dose 30 MG; Start 02/16/17 at 16:11; Stop 02/19/17 at 16:10 Sodium Chloride 1,000 ml @ 125 mls/hr Q8H IV Last administered on 02/16/17 19: 46; Admin Dose 125 MLS/HR; Start 02/16/17 at 08:00 Cefazolin Sodium/ Dextrose (Ancef 2 Gm/50 ml (Pmx)) 50 ml @ 100 mls/hr Q8 IVPB Last administered on 02/18/17 05:27; Admin Dose 100 MLS/HR; Start 02/16/17 at 09:01 Simethicone (Mylicon) 160 mg Q8 PRN PO DISTENSION/GAS/BLOATING Last administered on 02/16/17 17:21; Admin Dose 160 MG; Start 02/16/17 at 16:30 Oxycodone/ Acetaminophen (Percocet (5/ 325)) 2 tab Q4H PRN PO PAIN Last administered on 02/18/17 10:06; Admin Dose 2 TAB; Start 02/16/17 at 16:30 Ibuprofen (Motrin) 600 mg Q6H PRN PO BREAKTHROUGH PAIN Last administered on 02/17 23:29; Admin Dose 600 MG; Start 02/16/17 at 16:30 CHIVO SPEARS NP Feb 18, 2017 12:18
--- NOTE | 2017-02-18 15:42 | QN ---
Documentation Comment patient seen and evaluated no complaints reports improved of pain since surgery vs stable ab soft nt no distention no epigastric pain c/d/i no distention extremity edema no calf tenderness labs ast/alt decreasing imaging: sludge in gullblasder a/ sp cd POD 3 stable afebrile p/ repeat labs in am consider d/c home if stable tomorrow TALAT BRISCOE MD Feb 18, 2017 15:42
[2017-02-18 15:57] VITALS: BP 124/65; PULSE 73; RESP 17
--- NOTE | 2017-02-18 17:52 | CONS ---
Date/Time of Note Date/Time of Note DATE: 02/18/17 TIME: 17:49 Consult Date/Type/Reason Admit Date/Time Feb 13, 2017 at 23:45 Initial Consult Date 02/16/17 Type of Consultation: gastroenterology Ordering Provider: TALAT BRISCOE MD Subjective Pt had GB U/S performed, per nursing staff, has less abd pain now. CT A/P performed yesterday as well. Objective Vital Signs Date Time Temp Pulse Resp B/P Pulse Ox O2 Delivery O2 Flow Rate FiO2 02/18/17 15:57 97.9 73 17 124/65 Room Air 02/17/17 16:56 98 21 Intake and Output 02/17/17 02/17/17 02/18/17 15:00 23:00 07:00 Intake Total 50 ml 50 ml 50 ml Balance 50 ml 50 ml 50 ml Exam Gen: lying in bed, NAD HEENT - PERRL, EOMI Neck - supple Res - CTA b/l CV - S1S2 heard, no rubs Abd: ND, positive right upper quadrant tenderness, no R or G M/S: no LE edema Neuro: no focal deficits Results/Medications Result Diagram: 02/18/1772402/18/1725 Results 24 hrs Laboratory Tests Test 02/18/17 07:25 White Blood Count 15.7 H Red Blood Count 3.65 L Hemoglobin 11.6 L Hematocrit 34.1 L Mean Corpuscular Volume 93.4 Mean Corpuscular Hemoglobin 31.8 Mean Corpuscular Hemoglobin Concent 34.0 Red Cell Distribution Width 15.0 H Platelet Count 202 Mean Platelet Volume 11.0 H Neutrophils % 72.6 Lymphocytes % 19.0 Monocytes % 6.2 Eosinophils % 1.3 Basophils % 0.3 Nucleated Red Blood Cells % 0.0 Neutrophils # 11.4 H Lymphocytes # 3.0 H Monocytes # 1.0 H Eosinophils # 0.2 Basophils # 0.0 Nucleated Red Blood Cells # 0.0 Sodium Level 133 L Potassium Level 4.0 Chloride Level 103 Carbon Dioxide Level 26 Anion Gap 8 Blood Urea Nitrogen 5 L Creatinine 0.54 Glucose Level 78 Calcium Level 8.5 Total Bilirubin 0.0 L Direct Bilirubin 0.00 Indirect Bilirubin 0.0 Aspartate Amino Transf (AST/SGOT) 75 H Alanine Aminotransferase (ALT/SGPT) 84 H Alkaline Phosphatase 127 H Total Protein 5.9 L Albumin 3.2 L Globulin 2.70 Albumin/Globulin Ratio 1.18 Medications Current Medications Senna/Docusate Sodium 1 tab 1 tab BID PO Last administered on 02/17/17 21:21; Admin Dose 1 TAB; Start 02/16/17 at 09:00 Oxytocin/Lactated Ringer's 500 ml @ 0 mls/hr ONCE PRN IV For Hemorrhage Management; Start 02/16/17 at 00:00 Methylergonovine Maleate (Methergine) 0.2 mg ONCE PRN IM VAGINAL BLEEDING; Start 02/16/17 at 00:00 Carboprost Tromethamine (Hemabate) 250 mcg ONCE PRN IM VAGINAL BLEEDING; Start 02/16/17 at 00:00 Misoprostol (Cytotec) 1,000 mcg ONCE PRN [place] VAGINAL BLEEDING; Start 02/16/17 at 00:00 Ketorolac Tromethamine (Toradol) 30 mg Q6H PRN IV PAIN Last administered on 02/16 16:14; Admin Dose 30 MG; Start 02/16/17 at 16:11; Stop 02/19/17 at 16:10 Simethicone (Mylicon) 160 mg Q8 PRN PO DISTENSION/GAS/BLOATING Last administered on 02/16/17 17:21; Admin Dose 160 MG; Start 02/16/17 at 16:30 Oxycodone/ Acetaminophen (Percocet (5/ 325)) 2 tab Q4H PRN PO PAIN Last administered on 02/18/17 16:36; Admin Dose 2 TAB; Start 02/16/17 at 16:30 Ibuprofen (Motrin) 600 mg Q6H PRN PO BREAKTHROUGH PAIN Last administered on 02/18 13:43; Admin Dose 600 MG; Start 02/16/17 at 16:30 Assessment/Plan Chief Complaint/Hosp Course A/P: 31 F with elevated LFT's, s/p C sec POD # 2 1. abd pain/elevated LFT's - unclear source. Per surgery input 4 days ago: Unclear etiology of abdominal pain. Appendicitis is very unlikely based on MRI findings as well as the fact the symptoms have been going on for 2 week. Doubt gallbladder as well as patient is no evidence of cholecystitis on ultrasound both a few days ago, as well as today's U/S. Pt's bilirubin's are nL. Hep panel is nL. DDx = preecclampsia (apparently per nursing pt had elevated bp prior to admission, bp nL now, and + proteinuria), EtOH liver ds, although less likely. Ethanol screen was normal. Interestingly, patient volunteered to nursing staff this morning that she has had history of kidney stones in the past -but CT A/P was neg for any kidney or gall stones. LFT's are trending down as well. - will mainly defer to our GI colleagues about reason for elevated LFT's, including their w/u. 2. s/p C section - post delivery care per primary [employer] team. Will sign off for now, reconsult if any further issues, thanks. Problems: IVETTE MANNING. Feb 18, 2017 17:52
[2017-02-18 20:00] VITALS: BP 121/70; PULSE 76; RESP 20
[2017-02-18] MEDS ORDERED: NA PHOSPHATE/BIPHOS 133 ML ENEMA PR SCH (20:30)
[2017-02-19] MEDS: OXYCODONE/ACETAMINOPHEN (5/325) TAB PO PRN ×2 (02:17→08:39)
[2017-02-19 04:36] VITALS: BP 122/62; PULSE 70; RESP 20
[2017-02-19] MEDS: IBUPROFEN 600 MG TAB PO PRN (05:44)
[2017-02-19 07:30] VITALS: BP 116/72; PULSE 70; RESP 16
[2017-02-19] MEDS: SENNA/DOCUSATE NA (8.6MG/50MG) TAB PO SCH ×3 (07:33→08:37)
[2017-02-19 09:52] LABS: ADD SCAN DIFF NO
[2017-02-19 09:56] LABS: BASOPHILS % 0.3 % (0.0-2.0)
[2017-02-19 09:59] LABS: EOSINOPHILS # 0.4 10^3/ul (0.0-0.5); EOSINOPHILS % 2.6 % (0.0-7.0); HEMATOCRIT 36.8 % (37.0-47.0); HEMOGLOBIN 12.6 g/dl (12.0-16.0); LYMPHOCYTES # 3.3 10^3/ul (0.8-2.9); LYMPHOCYTES % 21.4 % (15.0-51.0); MEAN CORPUSCULAR HEMOGLOBIN 31.9 pg (29.0-33.0); MEAN CORPUSCULAR HGB CONC 34.2 g/dl (32.0-37.0); MEAN CORPUSCULAR VOLUME 93.2 fl (82.0-101.0); MEAN PLATELET VOLUME 10.5 fl (7.4-10.4); MONOCYTE # 0.9 10^3/ul (0.3-0.9); MONOCYTES % 5.5 % (0.0-11.0); NEUTROPHIL # 10.8 10^3/ul (1.6-7.5); NEUTROPHILS % 69.6 % (39.0-77.0); PLATELET COUNT 243 10^3/UL (140-415); RED BLOOD COUNT 3.95 10^6/ul (4.20-5.40); WHITE BLOOD COUNT 15.6 10^3/ul (4.8-10.8)
[2017-02-19 10:15] LABS: ALBUMIN 3.9 g/dl (3.3-4.9); ALBUMIN/GLOBULIN RATIO 1.18; BILIRUBIN,INDIRECT 0.2 mg/dl (0-1.1); BILIRUBIN,TOTAL 0.2 mg/dl (0.2-1.3); CALCIUM 9.4 mg/dl (8.4-10.2); CREATININE 0.59 mg/dl (0.44-1.00); POTASSIUM 4.5 mmol/L (3.5-5.1); TOTAL PROTEIN 7.2 g/dl (6.1-8.1)
--- NOTE | 2017-02-19 13:14 | DS ---
Date/Time of Note Date/Time of Note DATE: 02/19/17 TIME: 13:07 Obstetrical Discharge Record Final Diagnosis Final Diagnosis: delivered Other Final Diagnosis Severe PIH Section Section: Primary Primary Indication Severe PIH Complications Complications: Low weight 1500-2500gms Complications Preg induced Hypertension Augmentation: No Induction: No Condition on Discharge Physical Assessment Last Vitals: T=97.4 BP 116/72 ALT/AST 78/64 improved. WBC 15.6 Hgb 12.6 Plts 243 Voiding: Yes Bowel Movement: Yes Breast: Filling Fundus: Firm Abdomen and Incision: Incision clean, dry and intact with steristrips present. No evidence of infection. Calf Tenderness: No Patient Condition: Good GARFIELD RODRIGUEZ MD Feb 19, 2017 13:14
--- NOTE | 2017-02-19 13:15 | PD.PPDC ---
FLOORING HELPER Discharge Instruction Condition Patient Condition: Good Diet Diet: Resume Regular Diet Activity/Restrictions Activity: Bedrest May be up to bathroom May be up for meals May Shower Restrictions: No Exercising No Lifting No Driving Minimize Walking Minimize Stair-climbing No Sexual Activity Nothing in the Vagina No [place] No Tampons, douche Wound/Drain Care Instructions Wound/Drain Care Instructions: Remove Steri Strips in 2 weeks Keep clean and dry Follow-up Follow-up with Physician: 2, Week/Weeks Return to clinic for MAKE UP EDITOR Instructions: Fever greater than 101 Chills Worsening abdominal pain Excessive Vaginal Bleeding OB Instructions: Breast Tenderness Depression Surgical Instructions: Incisional Drainage Incisional Redness GARFIELD RODRIGUEZ MD Feb 19, 2017 13:15
[2017-02-19] MEDS ORDERED: Oxycodone/Acetamin (5/325) PO (13:16)
--- NOTE | 2017-02-19 13:23 | PN ---
Date/Time of Note Date/Time of Note DATE: 02/19/17 TIME: 13:21 Assessment/Plan VTE Prophylaxis VTE Prophylaxis Intervention: ambulation Lines/Catheters IV Catheter Type (from Nrs): Saline Lock Assessment/Plan Chief Complaint/Hosp Course Problems: Assessment/Plan Assessment * S/P section 02/15/2017 * Transaminitis improving * Gallbladder sludge by ultrasound Plan * Stable for outpatient management * Follow up in [address] [facility] in [place] * Case discussed with DR Balbuena Subjective 24 Hr Interval Summary Free Text/Dictation * Course reviewed with RN * patient seen and examined * no abdominal pain * no untoward events overnight Exam/Review of Systems Vital Signs Vitals Vital Signs Date Time Temp Pulse Resp B/P Pulse Ox O2 Delivery O2 Flow Rate FiO2 02/19/17 07:30 97.4 70 16 116/72 Room Air 02/17/17 16:56 98 21 Exam Constitutional: alert, oriented Psych: no complaints Head: normocephalic Neck: non-tender, supple Respiratory: clear to auscultation, normal air movement Cardiovascular: nl pulses, regular rate and rhythm Gastrointestinal: nl liver, spleen, non-tender, soft Musculoskeletal: nl extremities to inspection, nl gait and stance Extremities: normal pulses Neurological: nl speech, nl strength Skin: nl turgor, No rash or lesions Lymph: nl lymph nodes Results Result Diagram: 02/19/17 0909 02/19/17 0909 Results 24 hrs Laboratory Tests Test 02/19/17 09:09 White Blood Count 15.6 H Red Blood Count 3.95 L Hemoglobin 12.6 Hematocrit 36.8 L Mean Corpuscular Volume 93.2 Mean Corpuscular Hemoglobin 31.9 Mean Corpuscular Hemoglobin Concent 34.2 Red Cell Distribution Width 15.0 H Platelet Count 243 # Mean Platelet Volume 10.5 H Neutrophils % 69.6 Lymphocytes % 21.4 Monocytes % 5.5 Eosinophils % 2.6 Basophils % 0.3 Nucleated Red Blood Cells % 0.0 Neutrophils # 10.8 H Lymphocytes # 3.3 H Monocytes # 0.9 Eosinophils # 0.4 Basophils # 0.0 Nucleated Red Blood Cells # 0.0 Sodium Level 136 Potassium Level 4.5 Chloride Level 99 Carbon Dioxide Level 28 Anion Gap 14 Blood Urea Nitrogen 6 L Creatinine 0.59 Glucose Level 122 # Calcium Level 9.4 Total Bilirubin 0.2 Direct Bilirubin 0.00 Indirect Bilirubin 0.2 Aspartate Amino Transf (AST/SGOT) 64 H Alanine Aminotransferase (ALT/SGPT) 78 H Alkaline Phosphatase 140 H Total Protein 7.2 # Albumin 3.9 Globulin 3.30 H Albumin/Globulin Ratio 1.18 Medications Medications Current Medications Senna/Docusate Sodium 1 tab 1 tab BID PO Last administered on 02/19/17 08:35; Admin Dose 1 TAB; Start 02/16/17 at 09:00 Oxytocin/Lactated Ringer's 500 ml @ 0 mls/hr ONCE PRN IV For Hemorrhage Management; Start 02/16/17 at 00:00 Methylergonovine Maleate (Methergine) 0.2 mg ONCE PRN IM VAGINAL BLEEDING; Start 02/16/17 at 00:00 Carboprost Tromethamine (Hemabate) 250 mcg ONCE PRN IM VAGINAL BLEEDING; Start 02/16/17 at 00:00 Misoprostol (Cytotec) 1,000 mcg ONCE PRN LA VAGINAL BLEEDING; Start 02/16/17 at 00:00 Ketorolac Tromethamine (Toradol) 30 mg Q6H PRN IV PAIN Last administered on 02/16 16:14; Admin Dose 30 MG; Start 02/16/17 at 16:11; Stop 02/19/17 at 16:10 Simethicone (Mylicon) 160 mg Q8 PRN PO DISTENSION/GAS/BLOATING Last administered on 02/18/17 19:45; Admin Dose 160 MG; Start 02/16/17 at 16:30 Oxycodone/ Acetaminophen (Percocet (5/ 325)) 2 tab Q4H PRN PO PAIN Last administered on 02/19/17 08:39; Admin Dose 2 TAB; Start 02/16/17 at 16:30 Ibuprofen (Motrin) 600 mg Q6H PRN PO BREAKTHROUGH PAIN Last administered on 02/19 05:44; Admin Dose 600 MG; Start 02/16/17 at 16:30 Sodium Biphosphate/ Sodium Phosphate (Fleet Enema) 133 ml ONCE LA Last administered on 02/18/17 20:05; Admin Dose 133 ML; Start 02/18/17 at 20:30; Stop 02/19/17 at 20:29 CHIVO SPEARS NP Feb 19, 2017 13:23
[2017-02-20 13:17] LABS: ANA SCREEN POSITIVE (NEGATIVE)
[2017-02-22 14:41] LABS: MYELOPEROXIDASE ANTIBODY <1.0 AI; PROTEINASE-3 ANTIBODY <1.0 AI
== END 2017-02-19 15:15 | disposition home or self-care (01) | DRG 766 ==
LOC: OBT 21:25 → L-D 21:26 → OBG 23:45 → OBT 23:45 → L-D 02-15 08:05 → PP1 02-16 01:11
PROVIDERS: ADMIT Obstetrics & Gynecology; ATTEND Obstetrics & Gynecology
PROC: 10D00Z1 Extraction of Products of Conception, Low, Open Approach (ICD-10-PCS; principal; 2017-02-15 20:30)
DX: O13.4 Gestational [pregnancy-induced] hypertension without significant proteinuria, complicating childbirth (principal); O75.89 Other specified complications of labor and delivery; O99.62 Diseases of the digestive system complicating childbirth; K82.8 Other specified diseases of gallbladder; Z3A.33 33 weeks gestation of pregnancy; Z37.0 Single live birth; R74.0 Nonspecific elevation of levels of transaminase and lactic acid dehydrogenase [LDH]
CPT/HCPCS: 36415; 74176; 76705; 76815; 76817; 76818; 80053; 80069; 80076; 80306; 81001; 82150; 83615; 83690; 83735; 84075; 84156; 84450; 84460; 85025; 85362; 85384; 85610; 85730; 86021; 86038; 86255; 86592; 86704; 86709; 86803; 86850; 86900; 86901; 87340; 88307; 94760; 99464; G0463; J0690; J1100; J1200; J1885; J2175; J2270; J2274; J2370; J2405; J2590; J2765; J3475; J7030; J7120; J7121

== ENCOUNTER 2018-11-03 18:12 | Emergency (ER) | payer OTHER ==
[~2018-11-03] VITALS: Ht 162.6 cm; Wt 84.6 kg
[~2018-11-03 18:12] MED LIST changes: +Oxycodone/Acetamin (5/325) PO
[2018-11-03 18:46] VITALS: Ht 162.6 cm; Wt 84.6 kg
[2018-11-03] MEDS ORDERED: KETOROLAC 60 MG INJ IM STA (22:19)
[2018-11-03] MEDS ORDERED: NAPR-985 PO (23:57)
[2018-11-04 00:12] VITALS: BP 120/75; PULSE 89; RESP 18
--- NOTE | 2018-11-05 02:52 | ERD ---
ER Documentation Chief Complaint Chief Complaint R knee/leg pain/swelling s/p fall 4 days ago HPI 33-year-old female patient with no significant past medical history presents to ED complaining of right knee pain, swelling, pain that started after falling, 4 days ago. Reports that she was walking, accidentally twisted her right ankle. Denies any head or neck injuries. Denies any loss of sensation, loss of range of motion, increased redness or's swelling. Denies any fever, chills, nausea, vomiting. ROS All systems reviewed and are negative except as per history of present illness. Medications Home Meds Active Scripts Naproxen* (Naprosyn*) 500 Mg Tablet, 500 MG PO BID PRN for PAIN AND/OR INFLAMMATION, #30 TAB Prov:WILSON VASQUEZ PA-C 11/03/18 [Oxycodone/Acetamin (5/325)] 1 TAB TAB No Conflict Check, 2 TAB PO Q4H PRN for PAIN, #30 Prov:GARFIELD RODRIGUEZ MD 02/19/17 Reported Medications Vit W-Ca,Fe,FA(<1 mg) ( Vitamins) 1 Each Tablet, 1 EACH PO, TAB 01/23/17 Allergies Allergies: Coded Allergies: butorphanol (Verified Allergy, Severe, CONFUSION, SOB/DIFFICULTY BREATHING, 02/15/17) PMhx/Soc Medical and Surgical Hx: pt denies Medical Hx, pt denies Surgical Hx History of Surgery: No Anesthesia Reaction: No Hx Neurological Disorder: No Hx Respiratory Disorders: No Hx Cardiac Disorders: No Hx Psychiatric Problems: No Hx Miscellaneous Medical Probl: Yes (MILDLY OBESE) Hx Alcohol Use: No Hx Substance Use: No Hx Tobacco Use: No Smoking Status: Never smoker FmHx Family History: No diabetes, No coronary disease Physical Exam Vitals Vital Signs Date Temp Pulse Resp B/P (MAP) Pulse Ox O2 O2 Flow FiO2 Time Delivery Rate 11/04/18 97.8 89 18 120/75 100 Room Air 00:12 (90) 11/03/18 97.7 88 20 131/65 100 18:46 (87) Physical Exam Const: [id number], well-nourished. In no acute distress. Head: Atraumatic, normocephalic Eyes: Normal Conjunctiva without injection ENT: Normal external ear, nose and mouth. Neck: Full range of motion. No meningismus. Resp: Clear to auscultation bilaterally. No wheezing, rhonchi, rales, or crackles. No accessory muscle use. No retractions. Cardio: Regular rate and rhythm, no murmurs Skin: No petechiae or rashes Back: No midline tenderness. No CVA tenderness. Ext: No cyanosis, or edema. Cap refill less than 2 seconds. Distal pulses intact bilaterally. Palpation of the right patella. No erythema, edema, purulent discharge. No fluctuance or induration. Limited range of motion due to pain. Neur: Awake and alert. Normal gait and coordination. Muscle strength 5/5. Sensation intact bilaterally. Psych: Normal Mood and Affect Results 24 hrs Laboratory Tests Test 11/03/18 22:46 POC Beta HCG, Qualitative NEGATIVE Current Medications Medications Dose Sig/Ginger Start Time Status Last (Trade) Ordered Route PRN Stop Time Admin Dose Reason Admin Ketorolac 60 mg ONCE STAT 11/03/18 DC 11/03/18 Tromethamine IM 22:19 22:55 (Toradol) 11/03/18 22:23 Procedures/MDM This is a 33-year-old female patient with no significant past medical history p resents to ED complaining of right knee pain that started 4 days ago. Patient is afebrile and nontoxic-appearing. Patient given Toradol which helped her pain. Urine negative. IMPRESSION: Soft tissue swelling lateral to the lateral malleolus with no acute fracture. Tiny plantar calcaneal spur. IMPRESSION: Tiny radiopaque foreign body in the region of the proximal phalanx of the fifth digit. IMPRESSION: Normal x-ray of the right tibia and fibula. Patient is placed in an Giovanni wrap. Crutches given to patient to help with ambulation. Splint Assessment: Neurovascularly intact pre and post splint placement with good fit. Patient's extremity symptoms have stabilized while they have been evaluated in the department and are appropriate for outpatient follow up. No evidence of fractures, dislocations, compartment syndrome, neurologic injury, vascular injury, open joint, open fracture, tendon laceration, septic arthritis, osteomyelitis, DVT, foreign body, or other emergent conditions. Diagnosis: Injury of foot and ankle Discharge medications: Naproxen Follow up with primary care physician in 1-2 days. Instructed patient to return to the ED sooner for any worsening symptoms. Patient's questions were answered. Patient is hemodynamically stable. Patient understood and agreed with discharge plan. Patient discharged stable. Disclaimer: Inadvertent spelling and grammatical errors are likely due to EHR/dictation software use and do not reflect on the overall quality of patient care. Also, please note that the electronic time recorded on this note does not necessarily reflect the actual time of the patient encounter. Departure Diagnosis: Primary Impression: Injury of foot Encounter type: initial encounter Laterality: left Qualified Codes: S99.922A - Unspecified injury of left foot, initial encounter Additional Impression: Injury of ankle Encounter type: initial encounter Laterality: right Qualified Codes: S99.911A - Unspecified injury of right ankle, initial encounter Condition: Stable Patient Instructions: What Are Ankle Sprains?, Sprain Foot Referrals: [facility] YOU HAVE RECEIVED A MEDICAL SCREENING EXAM AND THE RESULTS INDICATE THAT YOU DO NOT HAVE A CONDITION THAT REQUIRES URGENT TREATMENT IN THE EMERGENCY DEPARTMENT. FURTHER EVALUATION AND TREATMENT OF YOUR CONDITION CAN WAIT UNTIL YOU ARE SEEN IN YOUR DOCTORS OFFICE WITHIN THE NEXT 1-2 DAYS. IT IS YOUR RESPONSIBILITY TO MAKE AN APPOINTMENT FOR FOL-UP CARE. IF YOU HAVE A PRIMARY DOCTOR --you should call your primary doctor and schedule an appointment IF YOU DO NOT HAVE A PRIMARY DOCTOR YOU CAN CALL OUR PHYSICIAN REFERRAL HOTLINE AT IF YOU CAN NOT AFFORD TO SEE A PHYSICIAN YOU CAN CHOSE FROM THE FOLLOWING [facility] [address] [facility]. [facility] [address] [facility]. [facility] [address] [facility] [facility] [address] [facility] [address] [facility]. [facility]. [address] [facility]. [facility] YOU HAVE RECEIVED A MEDICAL SCREENING EXAM AND THE RESULTS INDICATE THAT YOU DO NOT HAVE A CONDITION THAT REQUIRES URGENT TREATMENT IN THE EMERGENCY DEPARTMENT. FURTHER EVALUATION AND TREATMENT OF YOUR CONDITION CAN WAIT UNTIL YOU ARE SEEN IN YOUR DOCTORS OFFICE WITHIN THE NEXT 1-2 DAYS. IT IS YOUR RESPONSIBILITY TO MAKE AN APPOINTMENT FOR FOLOW-UP CARE. IF YOU HAVE A PRIMARY DOCTOR --you should call your primary doctor and schedule and appointment IF YOU DO NOT HAVE A PRIMARY DOCTOR YOU CAN CALL OUR PHYSICIAN REFERRAL HOTLINE AT . IF YOU CAN NOT AFFORD TO SEE A PHYSICIAN YOU CAN CHOSE FROM THE FOLLOWING [facility] INSTITUTIONS: [facility] [address] [place] [address] [facility] [address] [place], [place] [id number] [place] [address] [address] [place] [address] [facility] URGENT CARE/SPECIALTIES Additional Instructions: Call your primary care doctor TOMORROW for an appointment during the next 2-3 days.See the doctor sooner or return here if your condition worsens before your appointment time. WILSON VASQUEZ PA-C Nov 05, 2018 02:52
== END 2018-11-04 00:13 | disposition home or self-care (01) ==
LOC: FTE 18:12
DX: S99.911A Unspecified injury of right ankle, initial encounter (principal); E66.9 Obesity, unspecified; X50.1XXA Overexertion from prolonged static or awkward postures, initial encounter; Y92.9 Unspecified place or not applicable; Z68.32 Body mass index [BMI] 32.0-32.9, adult
CPT/HCPCS: 73590; 73610; 73630; 81025; J1885; 96372